=== PATIENT | female | born 1935 | race Caucasian/White ===

== ENCOUNTER 2016-11-07 11:33 | Observation (INO) | payer MEDICARE ==
[2016-11-07] MEDS ORDERED: Ibuprofen TAB* 600 MG PO ONE (12:22)
[2016-11-07] MEDS ORDERED: Acetaminophen TAB* 325 MG PO ONE (12:22)
--- NOTE | 2016-11-07 13:39 | RAD ---
Indication: Right hip pain, fracture or osteoarthritis. CT of the pelvis was obtained in the axial plane. Coronal and sagittal reconstructed images were obtained. Transverse processes are unremarkable. There is degenerative disc disease at L5-S1 with broad-based protrusion and vacuum disc phenomenon. Facet arthropathy is noted. The pelvic ring is intact. No evidence of fracture is noted. Sacroiliac joints are otherwise unremarkable. The femoral head and neck demonstrates no evidence of fracture. There may be some early degenerative changes of both hips. Osteophyte formation is noted. IMPRESSION: No fracture of the pelvis is noted. Early degenerative changes of both hips.
--- NOTE | 2016-11-07 13:47 | RAD ---
Indication: Back pain extending to the proximal thigh. CT of the lumbar spine was obtained in the axial plane. Sagittal and coronal reconstructed images were obtained. The vertebral bodies appear normal in height. There is grade 1 spondylolisthesis of L4 on L5. At T12-L1 vacuum disc phenomenon is noted. No focal protrusion is noted. At L1-L2 and L2-L3 no disc protrusion is noted. No central or foraminal stenosis is noted. At L3-L4 minimal broad-based protrusion flattens the sac. No foraminal stenosis is noted. At L4-L5 grade 1 spondylolisthesis with broad-based protrusion is noted. Facet arthropathy and degenerative changes of both facet joints are noted. Broad-based protrusion is noted extending to far lateral aspects narrowing both intervertebral foramen. At L5-S1 degenerative disc disease is noted. Mild facet arthropathy is noted. No central or foraminal stenosis is noted. Sacroiliac joints are otherwise unremarkable. IMPRESSION: There is grade 1 spondylolisthesis of L4 on 5 with vacuum disc phenomenon, broad-based protrusion with flattening of the thecal sac and moderate degree of facet arthropathy. There is likely bilateral foraminal stenosis due to spondylolisthesis and probably.
[2016-11-07] MEDS ORDERED: Ondansetron ODT TAB* 4 MG PO ONE (14:29)
[2016-11-07] MEDS ORDERED: Dexamethasone TAB* 4 MG PO ONE (14:30)
[2016-11-07] MEDS ORDERED: oxyCODONE/Acetamin 5/325 MG* TAB PO ONE (14:30)
[2016-11-07] MEDS ORDERED: Diazepam TAB(*) 5 MG PO ONE (15:50)
[2016-11-07 16:05] LABS: Hematocrit 36 % (35-47); Hemoglobin 11.9 g/dl (12.0-16.0); Mean Corpuscular HGB Conc 33 g/dl (31-36); Mean Corpuscular Hemoglobin 32 pg (27-31); Mean Corpuscular Volume 94 fL (80-97); Mean Platelet Volume 9 um3 (7.4-10.4); Red Blood Count 3.76 10^6/ul (4.0-5.4); Red Cell Distribution Width 14 % (10.5-15); White Blood Count 9.1 10^3/ul (3.5-10.8)
--- NOTE | 2016-11-07 16:13 | ED ---
Aixa Farley Anna, scribed for Marcin Valentin MD on 11/07/16 at 1215 . Back Pain - HPI Summary HPI Summary: The patient is an 81 y/o female BIBA to [facility] presenting with gradual onset of worsening right hip pain that began four days ago. When she steps on her leg, her leg gives out. She reports that she has not fallen as a result of this. She noticed the pain after she did a lot of walking. The pain is such that she is no longer able to walk because of the pain. The pain does not radiate down her legs. She takes Tylenol and ibuprofen for the pain but did not take any today. She had an adjustment by her chiropractor yesterday and was able to walk at that time. The pain is exacerbated by sitting up. She denies CP or abd pain. She reports normal BM and urination. Denies Hx DM or back pain. Hx significant for arthritis. The patient lives by herself and has to ambulate up and down stairs regularly when at home. - History of Current Complaint Chief Complaint: EDFlankPain Stated Complaint: BACK PAIN Time Seen by Provider: 11/07/16 12:06 Hx Obtained From: Patient, Family/Photoengraving Apprentice - Accompanied by neighbor Onset/Duration: Gradual Onset, Lasting Days, Still Present Onset/Duration: Started Days Ago, Atraumatic, Still Present Pain Intensity: 8 Pain Scale Used: 0-10 Numeric - Allergies/Home Medications Allergies/Adverse Reactions: Allergies Allergy/AdvReac Type Severity Reaction Status Date / Time Codeine Allergy Unknown Verified 04/02/13 12:47 Reaction Details Paroxetine [From Paxil] Allergy Unknown Verified 04/02/13 12:47 Reaction Details Simvastatin Allergy Vomiting Verified 11/07/16 12:20 Tramadol Allergy Unknown Verified 04/02/13 12:48 Reaction Details PMH/Surg Hx/FS Hx/Imm Hx Endocrine/Hematology History: Denies: Hx Diabetes Cardiovascular History: Reports: Hx Coronary Artery Disease, Hx Hypertension Respiratory History: Reports: Hx Chronic Obstructive Pulmonary Disease (COPD) Musculoskeletal History: Reports: Hx Arthritis, Other Musculoskeletal History - Restless Leg Syndrome Denies: Hx Back Problems Psychiatric History: Reports: Hx Anxiety - Surgical History Surgery Procedure, Year, and Place: CABG Infectious Disease History: No Infectious Disease History: Denies: Traveled Outside the [place] in Last 30 Days - Family History Known Family History: Positive: Cardiac Disease, Diabetes - Social History Occupation: Retired Lives: Alone Alcohol Use: None Substance Use Type: Reports: None Smoking Status (MU): Never Smoked Tobacco Review of Systems Negative: Chest Pain Negative: Abdominal Pain Genitourinary: Other - Denies changes in urination or BM Positive: Arthralgia, Myalgia All Other Systems Reviewed And Are Negative: Yes Physical Exam - Summary Physical Exam Summary: The patient is well-nourished in no acute distress. The skin is warm and dry and skin color reflects adequate perfusion. HEENT: The head is normocephalic and atraumatic. The pupils are equal and reactive. The conjunctivae are clear and without drainage. Nares are patent and without drainage. Mouth reveals moist mucous membranes and the throat is without erythema and exudate. The external ears are intact. The ear canals are patent and without drainage. The tympanic membranes are intact. Neck is supple with full range of motion and non-tender. There are no carotid bruits. There is no neck vein distension. Respiratory: Chest is non-tender. Lungs are clear to auscultation and breath sounds are symmetrical and equal. Cardiovascular: Heart is regular rate and rhythm. There is no murmur or rub auscultated. There is no peripheral edema and pulses are symmetrical and equal. Abdomen: The abdomen is obese, soft, and non-tender. There are normal bowel sounds heard in all four quadrants and there is no organomegaly palpated. Musculoskeletal: Leg lengths equal. MICHAEL. Marked tenderness over sacrum and right hip. Extremities are non-tender with full range of motion. Positive straight leg raise, hips lateral at 90 degrees and contralateral 90 degrees at the left. There is good capillary refill. There is no peripheral edema or calf tenderness elicited. Neurological: Patient is alert and oriented to person, place and time. The patient has symmetrical motor strength in all four extremities. Cranial nerves are grossly intact. Deep tendon reflexes are intact in patella and Achilles. Good light touch sensation. Psychiatric: The patient has an appropriate affect and does not exhibit any anxiety or depression. Triage Information Reviewed: Yes Vital Signs On Initial Exam: Initial Vitals Temp Pulse Resp BP Pulse Ox 97.6 F 63 16 145/58 96 11/07/16 11:45 11/07/16 11:45 11/07/16 11:45 11/07/16 11:45 11/07/16 11:45 Vital Signs Reviewed: Yes - Dinora Coma Scale Coma Scale Total: 15 Diagnostics - Vital Signs Vital Signs Temp Pulse Resp BP Pulse Ox 11/07/16 12:00 65 153/61 93 11/07/16 11:56 64 96 11/07/16 11:45 97.6 F 63 16 145/58 96 - Laboratory Lab Results: Lab Results 11/07/16 Range/Units 15:55 WBC 9.1 (3.5-10.8) 10^3/ul RBC 3.76 L (4.0-5.4) 10^6/ul Hgb 11.9 L (12.0-16.0) g/dl Hct 36 (35-47) % MCV 94 (80-97) fL MCH 32 H (27-31) pg MCHC 33 (31-36) g/dl RDW 14 (10.5-15) % Plt Count 223 (150-450) 10^3/ul MPV 9 (7.4-10.4) um3 Neut % (Auto) 42.9 (38-83) % Lymph % (Auto) 47.4 H (25-47) % [place] % (Auto) 7.5 (1-9) % Eos % (Auto) 1.6 (0-6) % Baso % (Auto) 0.6 (0-2) % Absolute Neuts (auto) 3.9 (1.5-7.7) 10^3/ul Absolute Lymphs (auto) 4.3 (1.0-4.8) 10^3/ul Absolute Monos (auto) 0.7 (0-0.8) 10^3/ul Absolute Eos (auto) 0.1 (0-0.6) 10^3/ul Absolute Basos (auto) 0.1 (0-0.2) 10^3/ul Absolute Nucleated RBC 0.01 10^3/ul Nucleated RBC % 0.1 ESR Pending Result Diagrams: 11/07/16 15:55 Lab Statement: Any lab studies that have been ordered have been reviewed, and results considered in the medical decision making process. - CT Pelvis CT CT Interpretation: No Acute Changes CT Interpretation Completed By: Radiologist - IMPRESSION: No fracture of the pelvis is noted. Early degenerative changes of both hips. L-Spine CT CT Interpretation: Positive (See Comments) CT Interpretation Completed By: Radiologist - IMPRESSION: There is grade 1 spondylolisthesis of L4 on 5 with vacuum disc phenomenon, broad-based protrusion with flattening of the thecal sac and moderate degree of facet arthropathy. There is likely bilateral foraminal stenosis due to spondylolisthesis and probably. Re-Evaluation - Re-Evaluation First Eval Re-Evaluation Time: 14:23 Change: Unchanged Comment: The patient reports that she is still in pain. She reports that narcotics make her nauseous. She says she tolerates steroids well. For pain, she takes ibuprofen and Tylenol, but this has not alleviated her current pain. She takes Xanax for her anxiety. She has restless leg syndrome as well. She says she is willing to try a new medication. Second Eval Re-Evaluation Time: 15:13 Change: Improved Comment: The patient reports that she does not have any pain lying down. The pain is when she tries to get up. She is starting to feel some relief from the pills and has not felt any nausea. Third Eval Re-Evaluation Time: 15:40 Change: Unchanged Comment: The patient feels as if the pain has gotten worse. She reports that she cannot walk without support, which she found when her nurse and daughter tried to help her go to the bathroom. She says she does not feel comfortable going home. Pt unable to get up without assistance. Will consult hospitalist for evaluation. Back Pain Course/Dx - Course Assessment/Plan: Patient is a lady with back pain since Tuesday. She saw her chiropractor for an evaluation of the pain. It is worse today and she cannot walk. The patient was given mobile doses of pain med. She was helped up to go to the bathroom and was unable to get up w/o assistance. She lives by herself and has steps in her house. Not able to safely d/c home. Will consult hospitalist for admission. Diagnosis is: 1. Back pain 2. Ambulatory dysfunction 3. Degenerative disc disease - Diagnoses Differential Diagnosis/HQI/PQRI: Positive: Arthritis, Herniated Disc, Strain, Sprain, Other - sciatica, degenerative disc disease Provider Diagnoses: Back pain, Ambulatory dysfunction, Degenerative disc disease - Provider Notifications Discussed Care of Patient With: Dr. Chao (hospitalist) at 1601. Accepts patient for admission. Discharge - Discharge Plan Condition: Stable Disposition: ADMITTED TO [facility] Patient Education Materials: Back Pain (ED), Hip Pain (ED) Referrals: Irvin Schafer MD [Primary Care Provider] - The documentation as recorded by the Aixa castellon Anna accurately reflects the service I personally performed and the decisions made by me, Marcin Valentin MD.
[2016-11-07 16:21] LABS: Albumin 3.9 g/dL (3.2-5.2); BUN/Creatinine Ratio 23.6 (8-20); C Reactive Protein 6.9 mg/L (< 5.00); EGFR African American 63.7 (>60); EGFR Non-African American 49.5 (>60); Globulin 3.3 g/dL (2-4); Potassium 4.1 mmol/L (3.5-5.0); Total Bilirubin 0.4 mg/dL (0.2-1.0); Total Protein 7.2 g/dL (6.4-8.9)
[2016-11-07] MEDS ORDERED: ALPRAZolam TAB* 0.5 MG PO PRN (16:44)
[2016-11-07] MEDS ORDERED: Ibuprofen TAB* 600 MG PO PRN (16:46)
[2016-11-07 16:52] LABS: Erythrocyte Sed Rate 33 mm/Hr (0-40)
[2016-11-07] MEDS ORDERED: Docusate CAP* 100 MG PO PRN (18:10)
--- NOTE | 2016-11-07 18:58 | HP ---
CC: Dr. Schafer HISTORY AND PHYSICAL: DATE OF ADMISSION: 11/07/16 PRIMARY CARE PHYSICIAN: Dr. Schafer. CHIEF COMPLAINT: Back pain. HISTORY OF PRESENT ILLNESS: Ms. Hawkins is an 81-year-old female with a past medical history of hype rtension, CAD, COPD, arthritis, hyperlipidemia, hypothyroidism, diabetes, who [facility]. The patient states she has had some difficulty walking for sometimes, p articularly with long distances, she develops low back pain. However, on Tuesday, she felt like s he pushed herself as she brought her friend here to the hospital, was pushing her on in a wheelchair . Over the following days, she had worsening pain in the right low back and part of the right later al hip that was nonradiating. She denied any numbness or tingling. She decided yesterday to go to chiropractor where she states she had a back and a pelvic adjustment. She felt like perhaps her sym ptoms were little bit better in the evening; however, this morning when she woke up, the pain was mu ch more severe. She could not sit up in bed and came to the hospital for further evaluation. She d enies any lower extremity numbness or tingling. No urinary symptoms. No fever or chills. Reports she has been having good p.o. intake. No diarrhea, constipation, nausea, vomiting, dysuria, hematur ia, hematochezia, or melena. In the emergency department, she received pain medications and steroid s; however, she still had a lot of difficulty getting around as she lives on her own. She felt that it was unsafe for her to return home. PAST MEDICAL HISTORY: CAD, hypertension, COPD, arthritis, hyperlipidemia, hypothyroidism, diabetes. PAST SURGICAL HISTORY: CABG, hysterectomy, appendectomy, cholecystectomy, tubal ligation. HOME MEDICATIONS: 1. Metformin 500 mg by mouth daily. 2. Synthroid 112 mcg by mouth daily. 3. Alprazolam 0.5 mg by mouth at bedtime as needed for anxiety. 4. Atorvastatin 20 mg by mouth daily. 5. Amlodipine 10 mg by mouth daily. 6. Aspirin 81 mg by mouth daily. 7. Lisinopril/hydrochlorothiazide 20/12.5 one tablet by mouth daily. 8. Multivitamin 1 tablet by mouth daily. 9. Tylenol 650 mg by mouth at bedtime. ALLERGIES: CODEINE, TRAMADOL, SIMVASTATIN, PAROXETINE. SOCIAL HISTORY: Denies any tobacco use, alcohol use, or illicit drug use. She lives at home on her own and is fairly independent. REVIEW OF SYSTEMS: A 12-point review of systems negative except for that as noted in the HPI. PHYSICAL EXAMINATION GENERAL: The patient is a pleasant, obese, elderly female lying in bed in no apparent dis tress. VITAL SIGNS: On admission, temperature 97.6, heart rate of 63, respiratory rate of 16, O2 saturatio n 96% on room air, blood pressure 145/58. HEENT: Moist mucous membranes. Anicteric sclerae. Pupils equal, round, reactive to light and acco mmodation. LUNGS: Clear to auscultation bilaterally. No wheezes, rales, or rhonchi. CARDIOVASCULAR: Regular rate and rhythm. S1, S2 present. No murmurs, gallops, or rubs. ABDOMEN: Soft, nontender, nondistended. Bowel sounds positive. EXTREMITIES: No cyanosis, clubbing, or edema. NEUROLOGIC: The patient is alert and oriented x3. No focal neurological deficits. MUSCULOSKELETAL: The patient is able to do bilateral straight leg raise test without any pain. Str ength is 5/5 in bilateral lower extremities. She has point tenderness over the right SI joint and s ome tenderness over the lateral pelvis. This pain is nonradiating. LABS AND DIAGNOSTICS: White blood cell count of 9.1, hematocrit of 36, platelets 223. ESR of 33. CRP of 6.9. Sodium of 134, potassium 4.1, chloride of 101, CO2 of 22, BUN of 25, creatinine of 1.0 6, glucose of 142. LFTs within normal limits. Lumbar spine CT shows grade 1 spondylolisthesis in L4-L5 with a broad-based protrusion with flatteni ng of the thecal sac and moderate facet arthropathy, likely bilateral foraminal stenosis due to spon dylolisthesis is probable. Pelvic CT shows no fracture of the pelvis, early degenerative changes in both hips. ASSESSMENT AND PLAN: Acute worsening of back pain after chiropractic adjustment in an 81-year-old f emale with a history of coronary artery disease, hypertension, chronic obstructive pulmonary disease , arthritis, hyperlipidemia, hypothyroidism, diabetes. 1. Back pain: I do not think this is related to the patient's herniated disk. Seems like on exam t his is possibly sacroiliitis. This could have been exacerbated by her chiropractic adjustment. The patient seemed to respond well to Percocet in the emergency department. We will continue this for now. She also received Decadron. We will continue prednisone 40 mg by mouth daily starting tomorro w. Have ibuprofen available as well. Place the PT evaluation. I do not feel the patient needs any additional imaging at this time. 2. Coronary artery disease: Continue aspirin, statin. 3. Hypertension: Continue home amlodipine and lisinopril/hydrochlorothiazide. 4. Hypothyroidism: Continue home Synthroid. 5. Diabetes: Continue home metformin. 6. DVT prophylaxis: Heparin subcu. 7. Code status: The patient is a full code. TIME SPENT: Total time spent on this admission 45 minutes with over half the time spent face-to-fac e with the patient in counseling and coordinating care. [id number]/[facility] #: [id number]
[2016-11-07 20:25] LABS: Urine Bilirubin Negative (Negative); Urine Glucose Negative (Negative); Urine Nitrite Negative (Negative)
[2016-11-07] MEDS: Heparin VIAL(*) 5000 UNITS/ML VIAL (FIVE THOUSAND) SUBCUT SCH (21:46)
[2016-11-07] MEDS: oxyCODONE/Acetamin 5/325 MG* TAB PO PRN (21:46)
[2016-11-08] MEDS: oxyCODONE/Acetamin 5/325 MG* TAB PO PRN ×3 (03:39→15:11)
[2016-11-08] MEDS: Heparin VIAL(*) 5000 UNITS/ML VIAL (FIVE THOUSAND) SUBCUT SCH ×2 (05:41→13:58)
[2016-11-08] MEDS ORDERED: Hydrochlorothiazide TAB* 25 MG PO SCH (09:00)
[2016-11-08] MEDS ORDERED: amLODIPine TAB* 5 MG PO SCH (09:00)
[2016-11-08] MEDS ORDERED: METFORMIN 500 MG PO SCH (09:00)
[2016-11-08] MEDS ORDERED: Lisinopril TAB* 10 MG PO SCH (09:00)
[2016-11-08] MEDS ORDERED: Atorvastatin* 20 MG TAB PO SCH (09:00)
[2016-11-08] MEDS ORDERED: Levothyroxine TAB* 112 MCG TAB PO SCH (09:00)
[2016-11-08] MEDS ORDERED: predniSONE TAB* 20 MG PO SCH (09:00)
[2016-11-08] MEDS ORDERED: Aspirin EC Low Dose* 81 MG TAB.EC PO SCH (09:00)
--- NOTE | 2016-11-08 12:30 | DCNOTE ---
Patient seen this morning. Back pain improved, Percocet works well. Patient ambulated around the unit. Still with some pain however but should be able to manage at home. On exam, RRR, s1 and s2 present, no m/g/r, abd soft, NTND, BS+, TTP over R SI joint Discharge home with pain medications and home PT.
[2016-11-08 16:00] VITALS: BP 123/44
--- NOTE | 2016-11-10 04:19 | DS ---
DISCHARGE SUMMARY: DATE OF ADMISSION: 11/07/16 DATE OF DISCHARGE: 11/08/16 PRIMARY CARE PHYSICIAN: Dr. Schafer. PRINCIPAL DISCHARGE DIAGNOSIS: Back pain. SECONDARY DIAGNOSES: 1. Coronary artery disease. 2. Hypertension. 3. Chronic obstructive pulmonary disease. 4. Arthritis. 5. Hyperlipidemia. 6. Hypothyroidism. 7. Diabetes. DISCHARGE MEDICATION REGIMEN: 1. Colace 100 mg by mouth daily as needed for constipation. 2. Ibuprofen 600 mg by mouth every 6 hours as needed for pain. 3. Percocet 5/325 one tablet by mouth every 4 hours as needed for pain. 4. Prednisone 40 mg by mouth daily. 5. Synthroid 112 mcg by mouth daily. 6. Xanax 0.5 mg by mouth at bedtime as needed for anxiety. 7. Atorvastatin 20 mg by mouth daily. 8. Amlodipine 10 mg by mouth daily. 9. Aspirin 81 mg by mouth daily. 10. Lisinopril/hydrochlorothiazide 20/12.5 one tablet by mouth daily. 11. Multivitamin 1 tablet by mouth daily. 12. Metformin 1000 mg by mouth daily. STUDIES DONE DURING HOSPITALIZATION: CT spine, lumbar without contrast. There is grade 1 spondylolisthesis at L4-L5 with vacuum disk phenomenon, broad-based protrusion with flattening of the thecal sac and moderate degree of facet arthropathy. There is likely bilateral foraminal stenosis due to spondylolisthesis. CT of the pelvis without contrast. Impression: No fracture of the pelvis is noted. Early degenerative changes of both hips. HISTORY OF PRESENT ILLNESS AND HOSPITAL SUMMARY: Please see my full history and physical for full details. Briefly, Ms. Hawkins is an 81-year-old female with a past medical history as above, who presented to the hospital with acute worsening of back pain after she had walked long distances in hospital and pushed her friend in a wheelchair. She went to a chiropractor and had an adjustment, which initially she noted some improvement. However, the following morning, the pain was significantly worse. She came to the ED. Imaging was done as above. However, physical exam was more consistent with sacroiliitis rather than spinal stenosis. The patient was given some steroids and pain medications and had improvement in her symptoms. She was ambulatory the following day and able to be discharged home with home physical therapy. TIME SPENT: Total time spent on this discharge 35 minutes. This is a summary of the hospitalization; please see the full medical record for further details. CC: Dr. Schafer* [id number]/[facility] #: [id number] MTDD
== END 2016-11-08 16:52 | disposition home or self-care (01) ==
LOC: ED 11:33 → SSU 16:12
PROVIDERS: ADMIT Hospitalist; ATTEND Hospitalist
DX: M43.16 Spondylolisthesis, lumbar region (principal); M51.16 Intervertebral disc disorders with radiculopathy, lumbar region; I25.10 Atherosclerotic heart disease of native coronary artery without angina pectoris; I10 Essential (primary) hypertension; J44.9 Chronic obstructive pulmonary disease, unspecified; E78.5 Hyperlipidemia, unspecified; E03.9 Hypothyroidism, unspecified; E11.9 Type 2 diabetes mellitus without complications; M19.90 Unspecified osteoarthritis, unspecified site; G25.81 Restless legs syndrome; Z79.899 Other long term (current) drug therapy; Z88.5 Allergy status to narcotic agent; Z88.8 Allergy status to other drugs, medicaments and biological substances
CPT/HCPCS: 36415; 72131; 72192; 80053; 81003; 85025; 85652; 86140; 96372; 99284; A9270-GY; G0378; G8978-GP-CI; G8979-GP-CI; G8980-GP-CI; J1644; J7512

== ENCOUNTER 2017-04-16 12:20 | Emergency (ER) | payer MEDICARE ==
[2017-04-16] MEDS ORDERED: oxyCODONE/Acetamin 5/325 MG* TAB PO ONE ×2 (18:23→18:24)
[2017-04-16] MEDS ORDERED: predniSONE TAB* 20 MG PO ONE ×2 (18:24→18:28)
[2017-04-16 19:21] VITALS: BP 154/60
--- NOTE | 2017-04-17 13:29 | ED ---
Kely Farley Thomas, scribed for Nahid Smith MD on 04/16/17 at 1801 . Lower Extremity - HPI Summary HPI Summary: The pt is a 81 y/o F presenting to the ED c/o R hip pain that began 3 weeks ago. This pain is related to a chronic complaint. Five months ago, she was diagnosed with sacroiliitis after an MRI and radiography were performed. She as seen three days ago and she was given a cortisone shot to no relief. The pain is constant and is rated 8/10. The pain is aggravated by sitting up from supine and alleviated by nothing. The patient has treated the pain with 2 Aleve and 2 Tylenol this AM, to no relief of pain. PMHx: NH, hypothyroidism, sacroiliitis, restless leg syndrome, anxiety, HTN, and COPD. PSHx: CABG. SHx: no smoking, no alcohol use, no illicit drugs. FHx: DM, CAD. - History of Current Complaint Chief Complaint: EDExtremityLower Stated Complaint: HIP PAIN Time Seen by Provider: 04/16/17 17:53 Hx Obtained From: Patient Onset of Pain: Days - 3 weeks Onset/Duration: Still Present Severity Currently: Severe Pain Intensity: 8 Pain Scale Used: 0-10 Numeric Timing: Constant Associated Signs And Symptoms: Positive: Negative Aggravating Factor(s): Other - standing up from supine Alleviating Factor(s): Nothing, Other - NOT relieved by Aleve, Tylenol taken today - Allergies/Home Medications Allergies/Adverse Reactions: Allergies Allergy/AdvReac Type Severity Reaction Status Date / Time Paroxetine [From Paxil] Allergy Unknown Verified 04/02/13 12:47 Reaction Details Simvastatin Allergy Vomiting Verified 11/07/16 12:20 Codeine AdvReac Unknown Verified 11/07/16 17:42 Reaction Details Tramadol AdvReac Unknown Verified 11/07/16 17:42 Reaction Details PMH/Surg Hx/FS Hx/Imm Hx Previously Healthy: No Endocrine/Hematology History: Reports: Hx Diabetes - borderline Cardiovascular History: Reports: Hx Coronary Artery Disease, Hx Hypertension Respiratory History: Reports: Hx Chronic Obstructive Pulmonary Disease (COPD), Hx Sleep Apnea - uses CPAP GI History: Reports: Hx Irritable Bowel Musculoskeletal History: Reports: Hx Arthritis, Other Musculoskeletal History - Restless Leg Syndrome Denies: Hx Back Problems Sensory History: Reports: Hx Contacts or Glasses - reading Opthamlomology History: Reports: Hx Contacts or Glasses - reading Psychiatric History: Reports: Hx Anxiety - Surgical History Surgery Procedure, Year, and Place: CABG Infectious Disease History: No Infectious Disease History: Denies: Traveled Outside the [place] in Last 30 Days - Family History Known Family History: Positive: Cardiac Disease, Diabetes - Social History Alcohol Use: None Substance Use Type: Reports: None Smoking Status (MU): Never Smoked Tobacco Review of Systems Negative: Fever Positive: Other - POS: R hip pain (from chronic pain, worsened 3 weeks ago, 04/07 ) All Other Systems Reviewed And Are Negative: Yes Physical Exam Triage Information Reviewed: Yes Vital Signs On Initial Exam: Initial Vitals Temp Pulse Resp BP Pulse Ox 97.3 F 62 20 148/63 97 04/16/17 12:37 04/16/17 12:37 04/16/17 12:37 04/16/17 12:37 04/16/17 12:37 Vital Signs Reviewed: Yes Appearance: Positive: Well-Appearing, Well-Nourished, Pain Distress Skin: Positive: Warm, Skin Color Reflects Adequate Perfusion, Dry Head/Face: Positive: Normal Head/Face Inspection Eyes: Positive: Normal ENT: Positive: Normal ENT inspection Neck: Positive: Supple, Nontender Respiratory/Lung Sounds: Positive: Clear to Auscultation, Breath Sounds Present Cardiovascular: Positive: RRR Abdomen Description: Positive: Nontender, Soft Bowel Sounds: Positive: Present Musculoskeletal: Positive: Other - She is tender to her sciatic area Neurological: Positive: Normal Psychiatric: Positive: Normal, Affect/Mood Appropriate Diagnostics - Vital Signs Vital Signs Temp Pulse Resp BP Pulse Ox 04/16/17 17:00 97.3 F 63 17 145/60 96 04/16/17 14:19 96.8 F 59 14 124/50 95 04/16/17 12:37 97.3 F 62 20 148/63 97 - Laboratory Lab Statement: Any lab studies that have been ordered have been reviewed, and results considered in the medical decision making process. Lower Extremity Course/Dx - Course Course Of Treatment: Ms. Hawkins presented with sciatica that has flaired up. She says steroids have helped her in the past and is requesting them again. Her exam is consistent and I am inclined to agree with her. - Diagnoses Provider Diagnoses: Sciatica Discharge - Discharge Plan Condition: Stable Disposition: HOME Patient Education Materials: Sciatica (ED) Referrals: Irvin Schafer MD [Primary Care Provider] - 3 Days The documentation as recorded by the Kely castellon Thomas accurately reflects the service I personally performed and the decisions made by me, Nahid Smith MD.
== END 2017-04-16 19:26 | disposition home or self-care (01) ==
LOC: ED 12:20
DX: M54.31 Sciatica, right side (principal); R73.03 Prediabetes; I25.10 Atherosclerotic heart disease of native coronary artery without angina pectoris; I10 Essential (primary) hypertension; J44.9 Chronic obstructive pulmonary disease, unspecified; G47.30 Sleep apnea, unspecified; K58.9 Irritable bowel syndrome, unspecified; G25.81 Restless legs syndrome; F41.9 Anxiety disorder, unspecified; Z95.1 Presence of aortocoronary bypass graft; Z88.5 Allergy status to narcotic agent; Z88.8 Allergy status to other drugs, medicaments and biological substances
CPT/HCPCS: 99282; A9270-GY; J7512

== ENCOUNTER 2017-04-22 14:29 | Emergency (ER) | payer MEDICARE ==
--- NOTE | 2017-04-22 16:42 | ED ---
Lower Extremity - HPI Summary HPI Summary: 81 yr old female with the complaint of left hip pelvis pain after a fall getting off the bus three days ago. She lives at home, walks with a walker, and feels that her left hip is giving out when attempting to walk. She rates her pain as moderate, worse with weight bearing. Denies focal weakness or numbness or tingling. - History of Current Complaint Chief Complaint: UCLowerExtremity Stated Complaint: HIP INJURY Time Seen by Provider: 04/22/17 16:27 - Allergies/Home Medications Allergies/Adverse Reactions: Allergies Allergy/AdvReac Type Severity Reaction Status Date / Time Paroxetine [From Paxil] Allergy Unknown Verified 04/02/13 12:47 Reaction Details Simvastatin Allergy Vomiting Verified 11/07/16 12:20 Codeine AdvReac Unknown Verified 11/07/16 17:42 Reaction Details Tramadol AdvReac Unknown Verified 11/07/16 17:42 Reaction Details PMH/Surg Hx/FS Hx/Imm Hx Endocrine/Hematology History: Reports: Hx Diabetes - borderline Cardiovascular History: Reports: Hx Coronary Artery Disease, Hx Hypertension Respiratory History: Reports: Hx Chronic Obstructive Pulmonary Disease (COPD), Hx Sleep Apnea - uses CPAP GI History: Reports: Hx Irritable Bowel Musculoskeletal History: Reports: Hx Arthritis, Other Musculoskeletal History - Restless Leg Syndrome Denies: Hx Back Problems Sensory History: Reports: Hx Contacts or Glasses - reading Opthamlomology History: Reports: Hx Contacts or Glasses - reading Psychiatric History: Reports: Hx Anxiety - Surgical History Surgery Procedure, Year, and Place: CABG Infectious Disease History: No Infectious Disease History: Denies: Traveled Outside the [place] in Last 30 Days - Family History Known Family History: Positive: Cardiac Disease, Diabetes - Social History Alcohol Use: None Substance Use Type: Reports: None Smoking Status (MU): Never Smoked Tobacco Review of Systems Positive: Other - hip pain All Other Systems Reviewed And Are Negative: Yes Physical Exam Triage Information Reviewed: Yes Vital Signs On Initial Exam: Initial Vitals Temp Pulse Resp BP Pulse Ox 96.8 F 60 12 141/54 100 04/22/17 14:57 04/22/17 14:57 04/22/17 14:57 04/22/17 14:57 04/22/17 14:57 Vital Signs Reviewed: Yes Appearance: Positive: Well-Appearing, No Pain Distress Skin: Positive: Warm Head/Face: Positive: Normal Head/Face Inspection Eyes: Positive: EOMI, BALJIT Neck: Positive: Nontender Respiratory/Lung Sounds: Positive: Clear to Auscultation, Breath Sounds Present Cardiovascular: Positive: RRR. Negative: Murmur Abdomen Description: Positive: Nontender Musculoskeletal: Positive: Other - tender over the left hip and with range of motion. No shortening or rotation of left leg. Neurological: Positive: Sensory/Motor Intact, Alert, Oriented to Person Place, Time, CN Intact II-III Psychiatric: Positive: Normal - [place] Coma Scale Best Eye Response: 4 - Spontaneous Best Motor Response: 6 - Obeys Commands Best Verbal Response: 5 - Oriented Diagnostics - Vital Signs Vital Signs Temp Pulse Resp BP Pulse Ox 04/22/17 14:57 96.8 F 60 12 141/54 100 - Laboratory Lab Statement: Any lab studies that have been ordered have been reviewed, and results considered in the medical decision making process. - Radiology hip, pelvis Xray Interpretation: No Acute Changes Radiology Interpretation Completed By: Radiologist Lower Extremity Course/Dx - Course Course Of Treatment: 81 yr old with contusion to the hip. DC home. Xrays neg. - Diagnoses Provider Diagnoses: Contusion of hip, left Discharge - Discharge Plan Condition: Good Disposition: HOME Patient Education Materials: Hip Contusion (ED) Referrals: Irvin Schafer MD [Primary Care Provider] -
[2017-04-22 17:11] VITALS: BP 145/60
--- NOTE | 2017-04-22 17:15 | RAD ---
HISTORY: Fall, trauma, left hip pain COMPARISONS: March 10, 2015 VIEWS: 3, Frontal view of the pelvis with frontal and frog-leg views of the left hip FINDINGS: BONE DENSITY: Normal. BONES: There is no displaced fracture. JOINTS: There is no arthropathy. ALIGNMENT: There is no dislocation. SOFT TISSUES: Unremarkable. OTHER FINDINGS: Degenerative changes are noted of the spine IMPRESSION: NO RADIOGRAPHIC EVIDENCE FOR HIP FRACTURE. X-RAYS MAY BE NEGATIVE WITH NONDISPLACED HIP FRACTURE, IF THERE IS PERSISTENT CLINICAL CONCERN, RECOMMEND CONSIDERATION OF MRI. IN THE SETTING OF CONTRAINDICATION TO MRI OR LIMITATION IN EMERGENT ACCESS TO MRI, CT WOULD BE SUGGESTED.
--- NOTE | 2017-04-22 18:32 | RAD ---
HISTORY: Fall, trauma COMPARISONS: None VIEWS: 4, Frontal and lateral views of the left femur FINDINGS: BONE DENSITY: Normal. BONES: There is no displaced fracture. JOINTS: There is osteoarthritis of the left knee. ALIGNMENT: There is no dislocation. SOFT TISSUES: There is peripheral arterial calcification. OTHER FINDINGS: None. IMPRESSION: 1. OSTEOARTHRITIS. 2. PERIPHERAL ARTERIAL DISEASE. 3. NO ACUTE OSSEOUS INJURY. IF SYMPTOMS PERSIST, RECOMMEND REPEAT IMAGING.
== END 2017-04-22 17:56 | disposition home or self-care (01) ==
LOC: UCEAST 14:29
DX: S70.02XA Contusion of left hip, initial encounter (principal); R73.03 Prediabetes; I10 Essential (primary) hypertension; I25.10 Atherosclerotic heart disease of native coronary artery without angina pectoris; J44.9 Chronic obstructive pulmonary disease, unspecified; G47.33 Obstructive sleep apnea (adult) (pediatric); Z99.81 Dependence on supplemental oxygen; M19.90 Unspecified osteoarthritis, unspecified site; G25.81 Restless legs syndrome; F41.9 Anxiety disorder, unspecified; Z95.1 Presence of aortocoronary bypass graft; Z88.5 Allergy status to narcotic agent; W19.XXXA Unspecified fall, initial encounter
CPT/HCPCS: 99212; G0463

== ENCOUNTER 2017-05-01 20:56 | Inpatient (IN) | payer MEDICARE ==
[2017-05-01] MEDS ORDERED: Ketorolac INJ* 60 MG/2 ML VIAL IM ONE (21:10)
--- NOTE | 2017-05-01 21:30 | ED ---
Erin Farley Rebecca, scribed for Rafa Saavedra MD on 05/01/17 at 2112 . Lower Extremity - HPI Summary HPI Summary: Pt is an 81 y/o F BIBA who presents to ED c/o L hip pain. Pain worsened this morning upon waking her up and is currently severe, ranked 8/10 and characterized as burning. Has been treating the pain with Tylenol and Aleve which previously helped but are no longer changing sx. Sx aggravated by ambulation and movement, alleviated by nothing. Dx of bursitis in the R hip in October. Received a Cortisone shot 4 days ago in the R hip. - History of Current Complaint Chief Complaint: EDHipPelvisInjury Stated Complaint: L HIP PAIN Hx Obtained From: Patient Onset of Pain: Hours - This morning, Prior to Arrival Onset/Duration: Still Present Severity Currently: Severe Pain Intensity: 8 Pain Scale Used: 0-10 Numeric Location: Is Discrete @ - L hip Character Of Pain: Burning Associated Signs And Symptoms: Positive: Negative Aggravating Factor(s): Ambulation, Movement Alleviating Factor(s): Nothing - Allergies/Home Medications Allergies/Adverse Reactions: Allergies Allergy/AdvReac Type Severity Reaction Status Date / Time Paroxetine [From Paxil] Allergy Unknown Verified 04/02/13 12:47 Reaction Details Simvastatin Allergy Vomiting Verified 11/07/16 12:20 Codeine AdvReac Vomiting Verified 05/02/17 00:35 Oxycodone [From Percocet] AdvReac Vomiting Verified 05/02/17 00:35 Tramadol AdvReac Vomiting Verified 05/02/17 00:35 Home Medications: Home Medications Acetaminophen TAB* [Tylenol TAB*] 650 mg PO Q4H PRN 05/02/17 [History Confirmed 05/02/17] PMH/Surg Hx/FS Hx/Imm Hx Endocrine/Hematology History: Reports: Hx Diabetes - borderline Cardiovascular History: Reports: Hx Coronary Artery Disease, Hx Hypertension Respiratory History: Reports: Hx Chronic Obstructive Pulmonary Disease (COPD), Hx Sleep Apnea - uses CPAP GI History: Reports: Hx Irritable Bowel Musculoskeletal History: Reports: Hx Arthritis, Hx Bursitis - R hip, Other Musculoskeletal History - Restless Leg Syndrome Denies: Hx Back Problems Sensory History: Reports: Hx Contacts or Glasses - reading Opthamlomology History: Reports: Hx Contacts or Glasses - reading Psychiatric History: Reports: Hx Anxiety - Surgical History Surgery Procedure, Year, and Place: CABG Infectious Disease History: No Infectious Disease History: Denies: Traveled Outside the [place] in Last 30 Days - Family History Known Family History: Positive: Cardiac Disease, Diabetes - Social History Alcohol Use: None Substance Use Type: Reports: None Smoking Status (MU): Never Smoked Tobacco Review of Systems Negative: Fever Positive: Arthralgia - L hip pain All Other Systems Reviewed And Are Negative: Yes Physical Exam Triage Information Reviewed: Yes Vital Signs On Initial Exam: Initial Vitals Temp Pulse Resp BP Pulse Ox 98.3 F 67 20 183/77 98 05/01/17 21:00 05/01/17 21:00 05/01/17 21:00 05/01/17 21:00 05/01/17 21:00 Vital Signs Reviewed: Yes Appearance: Positive: Well-Appearing, No Pain Distress Skin: Positive: Warm Head/Face: Positive: Normal Head/Face Inspection Eyes: Positive: Normal ENT: Positive: Hearing grossly normal Neck: Positive: Supple Respiratory/Lung Sounds: Positive: Clear to Auscultation, Breath Sounds Present Cardiovascular: Positive: RRR Abdomen Description: Positive: Nontender, Soft Bowel Sounds: Positive: Present Musculoskeletal: Positive: Other - pain lt hip with movement, no deformity Neurological: Positive: Alert, Oriented to Person Place, Time Psychiatric: Positive: Affect/Mood Appropriate - [place] Coma Scale Coma Scale Total: 15 Diagnostics - Vital Signs Vital Signs Temp Pulse Resp BP Pulse Ox 05/01/17 21:00 98.3 F 67 20 183/77 98 - Laboratory Result Diagrams: 05/02/17 00:12 05/02/17 05:48 Lab Statement: Any lab studies that have been ordered have been reviewed, and results considered in the medical decision making process. - Radiology Hip/Pelvis XR Xray Interpretation: No Acute Changes - MILD BILATERAL OSTEOARTHRITIC CHANGE IN THE HIPS. ED physician reviewed this radiology report and agrees. Radiology Interpretation Completed By: Radiologist Re-Evaluation - Re-Evaluation First Eval Re-Evaluation Time: 21:51 Change: Unchanged Comment: Discussed XR results with the pt. Lower Extremity Course/Dx - Course Assessment/Plan: Pt is an 81 y/o F BIBA who presents to ED c/o L hip pain. Pain worsened this morning upon waking her up and is currently severe, ranked 8/10 and characterized as burning. Has been treating the pain with Tylenol and Aleve which previously helped but are no longer changing sx. Sx aggravated by ambulation and movement, alleviated by nothing. Dx of bursitis in the R hip in October. Received a Cortisone shot 4 days ago in the R hip. Hip/pelvis XR reveals no acute changes. In the ED course, pt was administered Toradol, Morphine and Zofran. Discussed care of pt with Dr. Chris Hough, hospitalist, who accepts pt for admisison. Pt will be admitted with Dx of hip pain. She understands and agrees. Elevated BP noted and advised to f/u with PCP. - Diagnoses Provider Diagnoses: Hip pain - Physician Notifications Discussed Care Of Patient With: Chris Hough Time Discussed With Above Provider: 02:00 Instructed by Provider To: Other - Accepts pt for admission Discharge - Discharge Plan Condition: Fair Disposition: ADMITTED TO [facility] The documentation as recorded by the Erni castellon Rebecca accurately reflects the service I personally performed and the decisions made by me, Rafa Saavedra MD.
--- NOTE | 2017-05-01 21:52 | RAD ---
INDICATION: Left hip pain. COMPARISON: Comparison is made with a prior study from April 22, 2017. TECHNIQUE: An AP view of the pelvis and frontal and lateral views of the left hip were obtained. FINDINGS: The bones are in normal alignment. No fracture is seen. There is mild bilateral osteoarthritic change in the hips. IMPRESSION: MILD BILATERAL OSTEOARTHRITIC CHANGE IN THE HIPS.
[2017-05-01] MEDS ORDERED: Morphine INJ* 4 MG/ML 1 ML SYRINGE IM ONE (22:27)
[2017-05-01] MEDS ORDERED: Ondansetron ODT TAB* 4 MG SL PRN (22:28)
[2017-05-01] MEDS ORDERED: Ondansetron ODT TAB* 4 MG ONE (22:31)
[2017-05-02 00:27] LABS: Hematocrit 37 % (35-47); Hemoglobin 12.8 g/dl (12.0-16.0); Mean Corpuscular HGB Conc 34 g/dl (31-36); Mean Corpuscular Hemoglobin 32 pg (27-31); Mean Corpuscular Volume 93 fL (80-97); Mean Platelet Volume 8 um3 (7.4-10.4); Red Blood Count 4.01 10^6/ul (4.0-5.4); Red Cell Distribution Width 14 % (10.5-15); White Blood Count 9.4 10^3/ul (3.5-10.8)
[2017-05-02 00:39] LABS: Albumin 3.7 g/dL (3.2-5.2); BUN/Creatinine Ratio 26.4 (8-20); Calcium 8.9 mg/dL (8.6-10.3); EGFR African American 75.9 (>60); Globulin 3.2 g/dL (2-4); Potassium 4.5 mmol/L (3.5-5.0); Total Bilirubin 0.5 mg/dL (0.2-1.0); Total Protein 6.9 g/dL (6.4-8.9)
[2017-05-02 00:54] LABS: Urine Bacteria Absent (Absent); Urine Bilirubin Negative (Negative); Urine Glucose Negative (Negative); Urine Nitrite Negative (Negative)
[2017-05-02] MEDS ORDERED: Ondansetron INJ* 2 MG/ML VIAL IV PRN (02:32)
[2017-05-02] MEDS ORDERED: methylPREDNISolone 125 MG* 2 ML VIAL IV ONE (02:37)
[2017-05-02] MEDS ORDERED: NS 0.9% 1000 ML* 1,000 ML IV SCH ×2 (02:45→13:30)
[2017-05-02] MEDS: Cyclobenzaprine TAB* 10 MG PO PRN ×2 (02:50→15:43)
[2017-05-02] MEDS: Ketorolac INJ* 30 MG/ML 1 ML VIAL IV PUSH PRN ×2 (03:46→10:31)
[2017-05-02 06:24] LABS: Calcium 8.8 mg/dL (8.6-10.3); EGFR African American 71.4 (>60); EGFR Non-African American 55.5 (>60); Potassium 4.5 mmol/L (3.5-5.0)
[2017-05-02] MEDS: Levothyroxine TAB* 112 MCG TAB PO SCH (06:39)
[2017-05-02] MEDS: Heparin VIAL(*) 5000 UNITS/ML VIAL (FIVE THOUSAND) SUBCUT SCH ×3 (06:40→20:51)
[2017-05-02] MEDS ORDERED: Metformin ER (NF) 500 MG TAB PO SCH (09:00)
[2017-05-02] MEDS ORDERED: Hydrochlorothiazide TAB* 25 MG PO SCH (09:00)
[2017-05-02] MEDS: amLODIPine TAB* 5 MG PO SCH (09:12)
[2017-05-02] MEDS: Aspirin EC Low Dose* 81 MG TAB.EC PO SCH (09:12)
[2017-05-02] MEDS: Lisinopril TAB* 10 MG PO SCH (09:12)
[2017-05-02] MEDS: Acetaminophen TAB* 325 MG PO PRN ×2 (10:31→18:15)
[2017-05-02] MEDS: metFORMIN* 500 MG TAB PO SCH (15:43)
--- NOTE | 2017-05-02 16:00 | PN ---
Subjective Date of Service: 05/02/17 Interval History: Ms. Hawkins feels a little better this morning. She was up in the chair and was able to walk the few steps it took to get there, but then she developed sharp pain in her left hip again. At rest in bed, she has no pain. Denies numbness, tingling, weakness. Denies recent illness, but does note two recent falls. Family History: Unchanged from Admission Social History: Unchanged from Admission Past Medical History: Unchanged from Admission Objective Active Medications: Acetaminophen (Tylenol Tab*) 650 mg PO Q4H PRN PRN Reason: FEVER/PAIN Last Admin: 05/02/17 10:31 Dose: 650 mg Alprazolam (Xanax Tab*) 0.5 mg PO BEDTIME PRN PRN Reason: ANXIETY Amlodipine Besylate (Norvasc Tab*) 10 mg PO DAILY [facility] Last Admin: 05/02/17 09:12 Dose: 10 mg Aspirin (Aspirin Ec Low Dose*) 81 mg PO DAILY [facility] Last Admin: 05/02/17 09:12 Dose: 81 mg Cyclobenzaprine HCl (Flexeril Tab*) 10 mg PO TID PRN PRN Reason: PAIN Last Admin: 05/02/17 15:43 Dose: 10 mg Heparin Sodium (Porcine) (Heparin Vial(*)) 5,000 units SUBCUT Q8HR [facility] Last Admin: 05/02/17 14:08 Dose: 5,000 units Hydrochlorothiazide (Hydrodiuril Tab*) 12.5 mg PO DAILY [facility] Last Admin: 05/02/17 09:11 Dose: 12.5 mg Sodium Chloride (Ns 0.9% 1000 Ml*) 1,000 mls @ 75 mls/hr IV PER RATE [facility] Last Admin: 05/02/17 14:15 Dose: 75 mls/hr Ketorolac Tromethamine (Toradol Inj*) 30 mg IV PUSH Q6H PRN PRN Reason: PAIN Last Admin: 05/02/17 10:31 Dose: 30 mg Levothyroxine Sodium (Synthroid Tab*) 112 mcg PO DAILY@0600 [facility] Last Admin: 05/02/17 06:39 Dose: 112 mcg Lisinopril (Prinivil Tab*) 20 mg PO DAILY [facility] Last Admin: 05/02/17 09:12 Dose: 20 mg Metformin HCl (Glucophage*) 500 mg PO DAILY [facility] Last Admin: 05/02/17 15:43 Dose: 500 mg Ondansetron HCl (Zofran Odt Tab*) 4 mg SL Q6H PRN PRN Reason: NAUSEA/VOMITING Last Admin: 05/01/17 22:33 Dose: 4 mg Ondansetron HCl (Zofran Inj*) 4 mg IV Q4H PRN PRN Reason: NAUSEA/VOMITING Vital Signs 05/02/17 05/02/17 05/02/17 03:41 03:48 06:31 Temperature 98.2 F 98.2 F 98.1 F Pulse Rate 59 59 62 Respiratory 18 16 Rate Blood Pressure 147/47 147/47 132/52 (mmHg) O2 Sat by Pulse 96 96 Oximetry 05/02/17 05/02/17 05/02/17 08:00 08:19 08:31 Temperature 97.8 F Pulse Rate 63 68 Respiratory 16 22 Rate Blood Pressure 127/47 (mmHg) O2 Sat by Pulse 88 95 Oximetry 05/02/17 05/02/17 05/02/17 11:32 11:43 15:43 Temperature 98.5 F Pulse Rate 62 Respiratory 21 10 Rate Blood Pressure 86/54 120/60 (mmHg) O2 Sat by Pulse 98 Oximetry Oxygen Devices in Use Now: None Appearance: alert, well appearing, no distress Eyes: No Scleral Icterus, PERRLA Ears/Nose/Mouth/Throat: NL Teeth, Lips, Gums, Clear Oropharnyx Neck: NL Appearance and Movements; NL JVP, Trachea Midline Respiratory: Symmetrical Chest Expansion and Respiratory Effort, Clear to Auscultation Cardiovascular: NL Sounds; No Murmurs; No JVD, RRR, - - old cabg scar Abdominal: NL Sounds; No Tenderness; No Distention, No Hepatosplenomegaly Lymphatic: No Cervical Adenopathy, No Axillary Adenopathy Extremities: No Edema, - - tender to palpation over left greater trochanter, full range of motion without pain, strength 5+ throughout, sensation in tact, skin in tact no bruising Skin: No Rash or Ulcers Neurological: Alert and Oriented x 3, NL Sensation Result Diagrams: 05/02/17 00:12 05/02/17 05:48 Assess/Plan/Problems-Billing Assessment: 1. Trochanteric Bursitis s/p injection 4 days ago; repeat cortisone injection not likely to be helpful. Continue NSAIDs and consult PT for stretches and other supportive care. No suggestion of hip joint pathology on imaging or on my examination. 2. Hyponatremia. Appears euvolemic on my exam. She does take hctz, which may be contributing. Will hold for now, continue normal saline, and check urine sodium and TSH. 3. CAD s/p CABG Continue asa/statin 4. MO on cpap tolerates cpap well, continue at home settings.
[2017-05-03] MEDS: Ketorolac INJ* 30 MG/ML 1 ML VIAL IV PUSH PRN ×4 (03:29→22:38)
--- NOTE | 2017-05-03 03:52 | HP ---
ADMISSION HISTORY AND PHYSICAL: DATE OF ADMISSION: 05/02/17 PRIMARY CARE PROVIDER: Irvin Schafer MD HEALTHCARE PROXY: Her daughter. CODE STATUS: DNR. Discussed with the patient and her daughter. SOURCE OF INFORMATION: History obtained from interview with the patient and her daughter, review of her past medical records in [facility]. RELIABILITY: Fair. CHIEF COMPLAINT: Left hip pain. HISTORY OF PRESENT ILLNESS: This is an 81-year-old female, hospitalized in October of 2006 with what was thought to be sacroiliitis. She followed up with Goran Coy, who is orthopedic surgeon in [place] had been doing well, however , sometime around 04/16/17, she started to develop a right hip pain. The right hip pain migrated to the left and she presented to our ER on the after developing left hip pain following a fall. She is diagnosed with a hip contusion and sent home. She was doing well with Tylenol and Aleve controlling her pain and she additionally had a left hip injection with cortisone at with some improvement, although noted to be "not much" by her daughter with continued discomfort. Again, she had a fall either on the 04/29/17 or 04/30/17 where she hit her right shoulder after her leg "gave out." Since that time, she has been using a walker, whereas previously she was ambulating independently. Today, she woke up and had 10/10 burning, aching, left hip pain that was worse with standing without radiation with no pain with movement. Because of worsening pain and inability to control pain at home and inability to care for herself at home, she presented to the emergency room. In the emergency room, she received morphine and Toradol without improvement of the pain and she was unable to ambulate. She was noted to be hyponatremic and hospitalist service was consulted for admission. PAST MEDICAL HISTORY: 1. Right hip sacroiliitis. 2. Left hip injection, status post contusion, end of March. 3. Type 2 diabetes. 4. Hypertension. 5. CAD, status post 4-vessel CABG in 1999. 6. Denies COPD, although per chart review, COPD. 7. MO, overnight CPAP. 8. Chronic respiratory failure requiring 3 L at night. 9. Irritable bowel syndrome. 10. Hypothyroidism. 11. Restless leg syndrome. 12. Anxiety. SOCIAL HISTORY: No tobacco, alcohol, or illicits. Lives alone. Previously ambulating independently; now using a walker. FAMILY HISTORY: CAD and hypertension. ALLERGIES: To PAROXETINE, SIMVASTATIN, CODEINE, OXYCODONE and TRAMADOL, although did receive morphine in the emergency room. MEDICATIONS: Include: 1. Motrin 600 mg every 6 hours as needed for pain. 2. Tylenol 650 mg every 4 hours as needed for pain. 3. Metformin ER 500 mg daily. 4. Alprazolam 0.5 mg at bedtime as needed for anxiety. 5. Norvasc 10 mg daily. 6. Multivitamin 1 tab daily. 7. Lisinopril/hydrochlorothiazide 20/12.5 1 tab daily. 8. Synthroid 112 mcg daily. 9. Aspirin 81 mg daily. REVIEW OF SYSTEMS: As per HPI. Otherwise, all other systems negative. PHYSICAL EXAMINATION GENERAL: Younger than stated age, lying 35 degrees in bed, interactive. VITAL SIGNS: Vitals 153/54, heart rate is 58, respiratory rate 16, T-max in the emergency room 98.3. She is 98% on room air. HEENT: Oropharynx is clear. Moist mucous membranes. Sclerae are anicteric. LUNGS: Clear to auscultation. HEART: She has a regular rate and rhythm. ABDOMEN: Soft, nontender, nondistended. EXTREMITIES: Warm, well perfused without clubbing, cyanosis, or edema. She has tenderness over the left hip as well as close to her anterior inferior iliac spine. The muscle feels tense. She has a full range of motion, full passive and active in her left hip. No motor or sensory deficits. DIAGNOSTIC STUDIES/LAB DATA: Labs reviewed, notable for sodium 125, bicarb 21 , chloride 93, urine with a specific gravity of 1.009. Data reviewed, hip x-ray, impression: Mild bilateral osteoarthritic changes in the hips. ASSESSMENT AND PLAN: This is an 81-year-old female who presented to the hospital with worsening left hip pain after recent injection on 04/27/17 and a repeat fall on the 04/29/17 or 04/30/17. 1. Left hip pain, suspect bursitis. Recent records from Dr. Fernandez would be useful at this point. I have ordered PT as well as social work, as daughter ___ _requesting_ that patient will need subacute rehab and unable to care for herself at home. I am unclear if this will qualify for three acute hospital stays. I will continue Ketorolac as well as Tylenol. Add morphine as needed. One dose of methylprednisolone now and start Flexeril, reevaluate in the morning. 2. Hyponatremia. Normal saline now, recheck in the morning. 3. Obstructive sleep apnea. The patient has her own machine. Continue CPAP overnight. 4. Hypertension, continue all home medications. 5. Hypothyroidism. Continue home medications. [id number]/[facility] #: [id number] MTDD
[2017-05-03] MEDS: Cyclobenzaprine TAB* 10 MG PO PRN ×4 (05:19→22:38)
[2017-05-03] MEDS: Levothyroxine TAB* 112 MCG TAB PO SCH (05:19)
[2017-05-03] MEDS: Heparin VIAL(*) 5000 UNITS/ML VIAL (FIVE THOUSAND) SUBCUT SCH ×3 (05:20→20:07)
[2017-05-03 06:24] LABS: BUN/Creatinine Ratio 32.2 (8-20); Calcium 8.6 mg/dL (8.6-10.3); EGFR Non-African American 45.1 (>60); Potassium 4.7 mmol/L (3.5-5.0)
[2017-05-03 06:46] LABS: TSH (Thyroid Stimulating Horm) 0.47 mcIU/mL (0.34-5.60)
[2017-05-03] MEDS: metFORMIN* 500 MG TAB PO SCH (08:07)
[2017-05-03] MEDS: Aspirin EC Low Dose* 81 MG TAB.EC PO SCH (08:07)
[2017-05-03] MEDS: Lisinopril TAB* 10 MG PO SCH (08:07)
[2017-05-03] MEDS: amLODIPine TAB* 5 MG PO SCH (08:07)
[2017-05-03] MEDS: Acetaminophen TAB* 325 MG PO PRN (13:09)
--- NOTE | 2017-05-03 13:50 | PN ---
Subjective Date of Service: 05/03/17 Interval History: Ms. Hawkins worked with PT this morning and feels good. The toradol is helping her pain. She was able to bear weight on the left leg and do stretches with PT. She still complains of point tenderness to the left outer hip, but no weakness, numbness, tingling. Denies thirst, polyuria. Family History: Unchanged from Admission Social History: Unchanged from Admission Past Medical History: Unchanged from Admission Objective Active Medications: Acetaminophen (Tylenol Tab*) 650 mg PO Q4H PRN PRN Reason: FEVER/PAIN Last Admin: 05/03/17 13:09 Dose: 650 mg Alprazolam (Xanax Tab*) 0.5 mg PO BEDTIME PRN PRN Reason: ANXIETY Amlodipine Besylate (Norvasc Tab*) 10 mg PO DAILY [facility] Last Admin: 05/03/17 08:07 Dose: 10 mg Aspirin (Aspirin Ec Low Dose*) 81 mg PO DAILY [facility] Last Admin: 05/03/17 08:07 Dose: 81 mg Cyclobenzaprine HCl (Flexeril Tab*) 10 mg PO TID PRN PRN Reason: PAIN Last Admin: 05/03/17 13:09 Dose: 10 mg Heparin Sodium (Porcine) (Heparin Vial(*)) 5,000 units SUBCUT Q8HR [facility] Last Admin: 05/03/17 13:07 Dose: 5,000 units Ketorolac Tromethamine (Toradol Inj*) 30 mg IV PUSH Q6H PRN PRN Reason: PAIN Last Admin: 05/03/17 10:02 Dose: 30 mg Levothyroxine Sodium (Synthroid Tab*) 112 mcg PO DAILY@0600 [facility] Last Admin: 05/03/17 05:19 Dose: 112 mcg Lisinopril (Prinivil Tab*) 20 mg PO DAILY [facility] Last Admin: 05/03/17 08:07 Dose: 20 mg Metformin HCl (Glucophage*) 500 mg PO DAILY [facility] Last Admin: 05/03/17 08:07 Dose: 500 mg Ondansetron HCl (Zofran Odt Tab*) 4 mg SL Q6H PRN PRN Reason: NAUSEA/VOMITING Last Admin: 05/01/17 22:33 Dose: 4 mg Ondansetron HCl (Zofran Inj*) 4 mg IV Q4H PRN PRN Reason: NAUSEA/VOMITING Vital Signs 05/02/17 05/02/17 05/02/17 15:19 15:43 17:43 Temperature 97.9 F Pulse Rate 66 Respiratory 18 10 16 Rate Blood Pressure 111/44 (mmHg) O2 Sat by Pulse 95 Oximetry 05/02/17 05/02/17 05/03/17 19:26 22:00 03:35 Temperature 97.5 F 98.0 F 97.7 F Pulse Rate 72 61 67 Respiratory 16 16 18 Rate Blood Pressure 113/48 99/30 127/49 (mmHg) O2 Sat by Pulse 95 99 96 Oximetry 05/03/17 05/03/17 05/03/17 05:19 08:01 08:07 Temperature 97.5 F Pulse Rate 50 Respiratory 20 16 18 Rate Blood Pressure 112/41 (mmHg) O2 Sat by Pulse 99 Oximetry 05/03/17 13:09 Temperature Pulse Rate Respiratory 18 Rate Blood Pressure (mmHg) O2 Sat by Pulse Oximetry Oxygen Devices in Use Now: None Appearance: alert, well appearing, poor short term memory Eyes: No Scleral Icterus, PERRLA Ears/Nose/Mouth/Throat: NL Teeth, Lips, Gums, Clear Oropharnyx Neck: NL Appearance and Movements; NL JVP, Trachea Midline Respiratory: Symmetrical Chest Expansion and Respiratory Effort, Clear to Auscultation Cardiovascular: NL Sounds; No Murmurs; No JVD, RRR Abdominal: NL Sounds; No Tenderness; No Distention, No Hepatosplenomegaly Lymphatic: No Cervical Adenopathy, No Axillary Adenopathy Extremities: No Edema, - - left greater trochanter tender to palpation, worsened by adduction Skin: No Rash or Ulcers Neurological: Alert and Oriented x 3 Result Diagrams: 05/02/17 00:12 05/03/17 12:16 Assess/Plan/Problems-Billing Assessment: 1. Trochanteric Bursitis s/p injection 4 days ago; repeat cortisone injection not likely to be helpful. Continue NSAIDs and PT for stretches and other supportive care. No suggestion of hip joint pathology on imaging or on my examination. 2. Hyponatremia. Awaiting urine and serum osmolarity. Appears euvolemic on my exam. TSH normal ; urine sodium 37. She did take hctz, which may be contributing. Sodium worsened with NS, however is unchanged this morning without NS. Will try free water restriction. 3. CAD s/p CABG Continue asa/statin 4. MO on cpap tolerates cpap well, continue at home settings.
[2017-05-03] MEDS: Morphine INJ* 2 MG/ML 1 ML SYRINGE IV PRN ×2 (15:06→20:02)
[2017-05-04] MEDS: Morphine INJ* 2 MG/ML 1 ML SYRINGE IV PRN ×3 (00:01→08:41)
[2017-05-04] MEDS ORDERED: Morphine INJ* 2 MG/ML 1 ML SYRINGE ONE (02:13)
[2017-05-04] MEDS ORDERED: Morphine INJ* 2 MG/ML 1 ML SYRINGE IV ONE (03:00)
[2017-05-04] MEDS: Levothyroxine TAB* 112 MCG TAB PO SCH (06:01)
[2017-05-04] MEDS: Heparin VIAL(*) 5000 UNITS/ML VIAL (FIVE THOUSAND) SUBCUT SCH ×3 (06:01→21:21)
[2017-05-04] MEDS: Ketorolac INJ* 30 MG/ML 1 ML VIAL IV PUSH PRN ×3 (06:06→21:20)
[2017-05-04 06:35] LABS: BUN/Creatinine Ratio 35.4 (8-20); Calcium 8.5 mg/dL (8.6-10.3); EGFR African American 71.4 (>60); EGFR Non-African American 55.5 (>60)
[2017-05-04] MEDS: Cyclobenzaprine TAB* 10 MG PO PRN ×2 (07:52→17:13)
[2017-05-04] MEDS: Acetaminophen TAB* 325 MG PO PRN (07:52)
[2017-05-04] MEDS: metFORMIN* 500 MG TAB PO SCH (07:54)
[2017-05-04] MEDS: Aspirin EC Low Dose* 81 MG TAB.EC PO SCH (07:54)
[2017-05-04] MEDS: Lisinopril TAB* 10 MG PO SCH (07:55)
[2017-05-04] MEDS: amLODIPine TAB* 5 MG PO SCH (07:55)
[2017-05-04 14:27] LABS: BUN/Creatinine Ratio 35.6 (8-20); Calcium 8.8 mg/dL (8.6-10.3); EGFR African American 67.3 (>60); EGFR Non-African American 52.3 (>60); Potassium 5.1 mmol/L (3.5-5.0)
[2017-05-04] MEDS ORDERED: NS 0.45% 1000 ML BAG* 1,000 ML IV SCH (16:00)
--- NOTE | 2017-05-04 18:08 | PN ---
Subjective Date of Service: 05/04/17 Interval History: Pain is worse today. She has been taking morphine regularly, with little relief. She still describes the pain as in the lateral left hip without radiation. Denies shortness of breath, nausea, dysuria, or polyuria. Family History: Unchanged from Admission Social History: Unchanged from Admission Past Medical History: Unchanged from Admission Objective Active Medications: Acetaminophen (Tylenol Tab*) 650 mg PO Q4H PRN PRN Reason: FEVER/PAIN Last Admin: 05/04/17 07:52 Dose: 650 mg Alprazolam (Xanax Tab*) 0.5 mg PO BEDTIME PRN PRN Reason: ANXIETY Amlodipine Besylate (Norvasc Tab*) 10 mg PO DAILY [facility] Last Admin: 05/04/17 07:55 Dose: 10 mg Aspirin (Aspirin Ec Low Dose*) 81 mg PO DAILY [facility] Last Admin: 05/04/17 07:54 Dose: 81 mg Cyclobenzaprine HCl (Flexeril Tab*) 10 mg PO TID PRN PRN Reason: PAIN Last Admin: 05/04/17 17:13 Dose: 10 mg Heparin Sodium (Porcine) (Heparin Vial(*)) 5,000 units SUBCUT Q8HR [facility] Last Admin: 05/04/17 12:35 Dose: 5,000 units Ketorolac Tromethamine (Toradol Inj*) 30 mg IV PUSH Q6H PRN PRN Reason: PAIN Last Admin: 05/04/17 12:34 Dose: 30 mg Levothyroxine Sodium (Synthroid Tab*) 112 mcg PO DAILY@0600 [facility] Last Admin: 05/04/17 06:01 Dose: 112 mcg Lisinopril (Prinivil Tab*) 20 mg PO DAILY [facility] Last Admin: 05/04/17 07:55 Dose: 20 mg Metformin HCl (Glucophage*) 500 mg PO DAILY [facility] Last Admin: 05/04/17 07:54 Dose: 500 mg Morphine Sulfate (Morphine Inj (Syringe)*) 1 mg IV Q4H PRN PRN Reason: PAIN - MILD Last Admin: 05/04/17 08:41 Dose: 1 mg Ondansetron HCl (Zofran Odt Tab*) 4 mg SL Q6H PRN PRN Reason: NAUSEA/VOMITING Last Admin: 05/01/17 22:33 Dose: 4 mg Ondansetron HCl (Zofran Inj*) 4 mg IV Q4H PRN PRN Reason: NAUSEA/VOMITING Vital Signs 05/03/17 05/03/17 05/03/17 20:00 20:02 20:03 Temperature 97.6 F Pulse Rate 64 Respiratory 19 22 18 Rate Blood Pressure 120/52 (mmHg) O2 Sat by Pulse 94 Oximetry 05/03/17 05/03/17 05/03/17 21:02 22:38 23:05 Temperature 97.5 F Pulse Rate 60 Respiratory 20 20 20 Rate Blood Pressure 144/52 (mmHg) O2 Sat by Pulse 96 Oximetry 05/03/17 05/04/17 05/04/17 23:13 00:01 00:38 Temperature 97.5 F Pulse Rate 60 Respiratory 20 20 20 Rate Blood Pressure 144/52 (mmHg) O2 Sat by Pulse 96 Oximetry 05/04/17 05/04/17 05/04/17 01:01 02:20 03:18 Temperature 98.1 F Pulse Rate 61 Respiratory 16 22 20 Rate Blood Pressure 126/53 (mmHg) O2 Sat by Pulse 99 Oximetry 05/04/17 05/04/17 05/04/17 04:06 07:52 07:59 Temperature 97.5 F Pulse Rate 59 Respiratory 18 18 18 Rate Blood Pressure 140/58 (mmHg) O2 Sat by Pulse 96 Oximetry 05/04/17 05/04/17 05/04/17 08:00 08:41 09:41 Temperature Pulse Rate Respiratory 18 14 14 Rate Blood Pressure (mmHg) O2 Sat by Pulse Oximetry 05/04/17 05/04/17 05/04/17 11:24 14:22 14:25 Temperature 97.8 F 98 F Pulse Rate 57 68 Respiratory 20 18 18 Rate Blood Pressure 126/42 95/43 (mmHg) O2 Sat by Pulse 91 100 Oximetry 05/04/17 05/04/17 14:28 17:13 Temperature Pulse Rate Respiratory 18 18 Rate Blood Pressure (mmHg) O2 Sat by Pulse Oximetry Oxygen Devices in Use Now: None Appearance: alert, uncomfortable, no distress Ears/Nose/Mouth/Throat: NL Teeth, Lips, Gums, Clear Oropharnyx Neck: NL Appearance and Movements; NL JVP, Trachea Midline Respiratory: Symmetrical Chest Expansion and Respiratory Effort, Clear to Auscultation Cardiovascular: NL Sounds; No Murmurs; No JVD, RRR Abdominal: NL Sounds; No Tenderness; No Distention, No Hepatosplenomegaly Lymphatic: No Cervical Adenopathy Extremities: No Edema, - - exquisitely tender to palpation over left greater trochanter, full range of motion without pain, reflexes 2+ b/l Skin: No Rash or Ulcers Neurological: Alert and Oriented x 3 Result Diagrams: 05/02/17 00:12 05/04/17 13:48 Assess/Plan/Problems-Billing Assessment: 1. Trochanteric Bursitis Not responding to supportive care. Ortho consulted today. S/p cortisone injection 5 days ago without relief as well. Continue NSAIDs and PT for stretches. No suggestion of hip joint pathology on imaging or on my examination. 2. Hyponatremia. Awaiting urine and serum osmolarity. Appears euvolemic on my exam. TSH normal ; urine sodium 37. She did take hctz, which may be contributing. Sodium worsened with NS, however I am concerned that she is becoming volume deplete based on her BUN:creatinine ratio while on a free water restriction. May need to trial NS again. 3. CAD s/p CABG Continue asa/statin 4. MO on cpap tolerates cpap well, continue at home settings.
[2017-05-04 19:51] LABS: BUN/Creatinine Ratio 34.3 (8-20); Calcium 8.5 mg/dL (8.6-10.3); EGFR African American 64.4 (>60); EGFR Non-African American 50.1 (>60); Potassium 5.2 mmol/L (3.5-5.0)
[2017-05-04] MEDS: ALPRAZolam TAB* 0.5 MG PO PRN (21:20)
[2017-05-04] MEDS: Docusate CAP* 100 MG PO PRN (21:20)
[2017-05-05] MEDS: Cyclobenzaprine TAB* 10 MG PO PRN ×3 (04:04→16:32)
[2017-05-05 05:49] LABS: BUN/Creatinine Ratio 37.1 (8-20); Calcium 8.4 mg/dL (8.6-10.3); EGFR African American 70.5 (>60); EGFR Non-African American 54.8 (>60)
[2017-05-05] MEDS: Levothyroxine TAB* 112 MCG TAB PO SCH (05:55)
[2017-05-05] MEDS: Heparin VIAL(*) 5000 UNITS/ML VIAL (FIVE THOUSAND) SUBCUT SCH ×3 (05:55→21:29)
[2017-05-05] MEDS: Docusate CAP* 100 MG PO PRN (09:13)
[2017-05-05] MEDS: amLODIPine TAB* 5 MG PO SCH (09:13)
[2017-05-05] MEDS: Lisinopril TAB* 10 MG PO SCH (09:13)
[2017-05-05] MEDS: metFORMIN* 500 MG TAB PO SCH (09:14)
[2017-05-05] MEDS: Aspirin EC Low Dose* 81 MG TAB.EC PO SCH (09:14)
[2017-05-05] MEDS: Morphine INJ* 2 MG/ML 1 ML SYRINGE IV PRN ×3 (10:21→21:30)
[2017-05-05] MEDS ORDERED: NS 0.9% 1000 ML* 1,000 ML IV ONE (12:29)
[2017-05-05] MEDS: Polyethylene Glycol 3350* 17 GM PACKET PO SCH (13:20)
[2017-05-05] MEDS ORDERED: methylPREDNISolone ACETATE 80* 80 MG/ML 1 ML VIAL IM ONE (14:02)
[2017-05-05] MEDS: Ketorolac INJ* 30 MG/ML 1 ML VIAL IV PUSH PRN ×2 (14:05→20:03)
--- NOTE | 2017-05-05 17:20 | PN ---
Progress Note - Progress Note Date of Service: 05/05/17 Note: After obtaining consent from the patient and timeout preformed, the skin was prepped with 3 Betadine swabs and alcohol swabs. 80 mg DepoMedrol and 4 cc 2% plain lidocaine was injected into the point of maximum tenderness at the left trochanteric bursa. Bandaid applied to needle site. She tolerated the injection without complications.
--- NOTE | 2017-05-05 17:44 | PN ---
Subjective Date of Service: 05/05/17 Interval History: This is an 81 yo female who presented with a complaint of hip pain and found to be profoundly hyponatremic. She was admitted for management of hyponatremia. Her HCTZ was stopped and she has been placed on a 1500 ml daily fluid restriction. Initial XR shows no fracture. Patient continues to c/o hip pain, but denies DUONG, confusion or lethargy. Objective Active Medications: Acetaminophen (Tylenol Tab*) 650 mg PO Q4H PRN PRN Reason: FEVER/PAIN Last Admin: 05/04/17 07:52 Dose: 650 mg Alprazolam (Xanax Tab*) 0.5 mg PO BEDTIME PRN PRN Reason: ANXIETY Last Admin: 05/04/17 21:20 Dose: 0.5 mg Amlodipine Besylate (Norvasc Tab*) 10 mg PO DAILY [facility] Last Admin: 05/05/17 09:13 Dose: 10 mg Aspirin (Aspirin Ec Low Dose*) 81 mg PO DAILY [facility] Last Admin: 05/05/17 09:14 Dose: 81 mg Cyclobenzaprine HCl (Flexeril Tab*) 10 mg PO TID PRN PRN Reason: PAIN Last Admin: 05/05/17 16:32 Dose: 10 mg Docusate Sodium (Colace Cap*) 100 mg PO BID PRN PRN Reason: CONSTIPATION Last Admin: 05/05/17 09:13 Dose: 100 mg Heparin Sodium (Porcine) (Heparin Vial(*)) 5,000 units SUBCUT Q8HR [facility] Last Admin: 05/05/17 14:05 Dose: 5,000 units Ketorolac Tromethamine (Toradol Inj*) 30 mg IV PUSH Q6H PRN PRN Reason: PAIN Last Admin: 05/05/17 14:05 Dose: 30 mg Levothyroxine Sodium (Synthroid Tab*) 112 mcg PO DAILY@0600 [facility] Last Admin: 05/05/17 05:55 Dose: 112 mcg Lisinopril (Prinivil Tab*) 20 mg PO DAILY [facility] Last Admin: 05/05/17 09:13 Dose: 20 mg Metformin HCl (Glucophage*) 500 mg PO DAILY [facility] Last Admin: 05/05/17 09:14 Dose: 500 mg Morphine Sulfate (Morphine Inj (Syringe)*) 1 mg IV Q4H PRN PRN Reason: PAIN - MILD Last Admin: 05/05/17 16:32 Dose: 1 mg Ondansetron HCl (Zofran Odt Tab*) 4 mg SL Q6H PRN PRN Reason: NAUSEA/VOMITING Last Admin: 05/01/17 22:33 Dose: 4 mg Ondansetron HCl (Zofran Inj*) 4 mg IV Q4H PRN PRN Reason: NAUSEA/VOMITING Polyethylene Glycol/Electrolytes (Miralax*) 17 gm PO DAILY [facility] Last Admin: 05/05/17 13:20 Dose: 17 gm Vital Signs: Temp Pulse Resp BP Pulse Ox 97.8 F 67 20 139/51 96 05/05/17 13:55 05/05/17 13:55 05/05/17 16:32 05/05/17 13:55 05/05/17 13:55 Oxygen Devices in Use Now: None Appearance: Well appearing elderly female lying comfortably Respiratory: Symmetrical Chest Expansion and Respiratory Effort, Clear to Auscultation Cardiovascular: NL Sounds; No Murmurs; No JVD, RRR Abdominal: NL Sounds; No Tenderness; No Distention Extremities: No Edema Skin: No Rash or Ulcers Neurological: Alert and Oriented x 3 Result Diagrams: 05/02/17 00:12 05/05/17 05:15 Assess/Plan/Problems-Billing Assessment: This is an 81 yo female with h/o CAD and MO with HTN who presented with c/o hip pain and found to have severe hyponatremia. Hip pain appears to be a trochanteric bursitis, admitted for management of Na. - Patient Problems (1) Hyponatremia Comment: No significant improvement to mod fluid restriction and stopping HCTZ Initial serum osm slightly low Will trial 1L NS and repeat labs this evening and again tomorrow am Appears euvolemic on exam No offending medications assoicated with SIADH Urine osm pend (2) Hip pain Comment: Clinically c/w trochanteric bursitis Pending ortho consult No improvement with PT or NSAIDs (3) CAD (coronary artery disease) Comment: Asx Cont med management (4) MO (obstructive sleep apnea) (5) DNR (do not resuscitate) (6) DVT prophylaxis Comment: Heparin SQ Status and Disposition: Inpatient. Pending ortho consult, cont tx for hyponatremia. Will likely require [facility], [facility].
--- NOTE | 2017-05-05 17:50 | CONS ---
ORTHOPEDIC CONSULTATION: DATE OF CONSULT/DICTATION: 05/05/17 ATTENDING PHYSICIAN: Chris Hough MD. ATTENDING ORTHOPEDIC PHYSICIAN: Darell Wing MD. (DICTATED BY FELICITY AGUILERA) CHIEF COMPLAINT: Left lateral hip pain. HISTORY OF PRESENT ILLNESS: The patient is a pleasant 81-year-old female who has had difficulties with sacroiliitis bilaterally since October. She has been seeing Dr. Goran Fernandez in [place] and underwent injection therapy for her sacroiliitis. The patient initially had right hip pain and presented to the emergency department after developing left hip pain following a fall. Her x- rays did not reveal a fracture and was found to have a contusion. She was still having discomfort in the "left hip" and underwent a cortisone injection on 04/27/17. Per the patient's recollection, it was not in the lateral dorsal area of the hip but in the sacroiliac region on the left. She continues to have discomfort with burning pain directly over the trochanteric region with some radiation down the lateral thigh. Due to the fact that the pain is exacerbated with ambulation and she could not care for herself and ambulate independently, she was admitted to the medical service. She was started on ketorolac and oral pain medications and has not seen significant relief in her pain, therefore, orthopedic consultation is sought out. PAST MEDICAL HISTORY: Significant for sacroiliitis, type 2 diabetes, hypertension, coronary artery disease, COPD, obstructive sleep apnea, irritable bowel syndrome, hypothyroidism, restless leg syndrome, anxiety. MEDICATIONS: 1. Motrin. 2. Tylenol. 3. Metformin. 4. Alprazolam. 5. Norvasc. 5. Multivitamin. 6. Lisinopril. 7. Hydrochlorothiazide. 8. Synthroid. 9. Baby aspirin. ALLERGIES: PAROXETINE, SIMVASTATIN, CODEINE, OXYCODONE, and TRAMADOL. SOCIAL HISTORY: She denies use of alcohol, tobacco, or previous illicit drug use. She lives alone at home. Previously ambulating independently and currently using a walker due to her increased hip and sacroiliac pain. PHYSICAL EXAM: Her vital signs are stable with a temperature of 97.8, pulse 54 , respiratory rate 16, O2 sat is 96% on room air, BP 126/36. The patient is pleasant and cooperative. She is alert and oriented x3, lying supine in her bed , resting comfortably. On examination of the left hip, she is able to do an active straight leg raise. She is actively able to flex her hip to 120 degrees without leg or groin pain. Passively, she has full flexion, internal external rotation without groin pain, mild lateral hip pain. She has no obvious swelling deformity, ecchymosis or warmth, but she is point tender directly over the left greater trochanteric region. She has excellent circulation and sensation distally with a 2+ pedal pulse and full dorsiflexion and plantar flexion of her left ankle. DIAGNOSTIC STUDIES/LAB DATA: White count normal at 9.4. X-ray examination performed of the left hip and pelvis show some mild degenerative changes in bilateral hips. No obvious fractures or other bony abnormality identified. IMPRESSION: Trochanteric bursitis, left hip. PLAN: I did again review with the patient that her most recent cortisone injection was indeed not in the left bursal region on 04/27/17, but in the sacroiliac region. I am offering her a Depo-Medrol cortisone injection to the left bursal region and she would like to proceed. We will obtain the consent and proceed with the cortisone injection to see if this gives her relief of her symptoms. If she continues to have ongoing lateral hip pain, I will consider an MRI to rule out any occult cause for her ongoing pain. FELICITY AGUILERA [id number]/[facility] #: [id number] BOBBY
[2017-05-05 18:23] LABS: BUN/Creatinine Ratio 29.5 (8-20); Calcium 8.4 mg/dL (8.6-10.3); EGFR African American 72.2 (>60); EGFR Non-African American 56.2 (>60); Potassium 4.7 mmol/L (3.5-5.0)
[2017-05-05] MEDS ORDERED: NS 0.9% 1000 ML* 1,000 ML IV SCH (19:15)
[2017-05-06] MEDS: ALPRAZolam TAB* 0.5 MG PO PRN ×2 (01:17→10:11)
[2017-05-06] MEDS: Heparin VIAL(*) 5000 UNITS/ML VIAL (FIVE THOUSAND) SUBCUT SCH ×3 (06:31→21:21)
[2017-05-06] MEDS: Levothyroxine TAB* 112 MCG TAB PO SCH (06:31)
[2017-05-06 06:36] LABS: BUN/Creatinine Ratio 28.7 (8-20); Calcium 8.4 mg/dL (8.6-10.3); EGFR African American 73.1 (>60); EGFR Non-African American 56.9 (>60); Potassium 5.1 mmol/L (3.5-5.0)
[2017-05-06] MEDS: amLODIPine TAB* 5 MG PO SCH (07:28)
[2017-05-06] MEDS: metFORMIN* 500 MG TAB PO SCH (07:28)
[2017-05-06] MEDS: Polyethylene Glycol 3350* 17 GM PACKET PO SCH (07:28)
[2017-05-06] MEDS: Cyclobenzaprine TAB* 10 MG PO PRN ×2 (07:29→17:48)
[2017-05-06] MEDS: Lisinopril TAB* 10 MG PO SCH (07:29)
[2017-05-06] MEDS: Aspirin EC Low Dose* 81 MG TAB.EC PO SCH (07:29)
--- NOTE | 2017-05-06 11:03 | PN ---
Subjective Date of Service: 05/06/17 Interval History: Patient was evaluated by ortho yesterday, who agreed that her pain was likely due to GT bursitis and she underwent steroid bursa injection. She reports that her hip pain has nearly resolved but now has anterior knee pain. She reports that she is also quite constipated. Objective Active Medications: Acetaminophen (Tylenol Tab*) 650 mg PO Q4H PRN PRN Reason: FEVER/PAIN Last Admin: 05/04/17 07:52 Dose: 650 mg Alprazolam (Xanax Tab*) 0.5 mg PO BID PRN PRN Reason: ANXIETY Last Admin: 05/06/17 10:11 Dose: 0.5 mg Amlodipine Besylate (Norvasc Tab*) 10 mg PO DAILY [facility] Last Admin: 05/06/17 07:28 Dose: 10 mg Aspirin (Aspirin Ec Low Dose*) 81 mg PO DAILY [facility] Last Admin: 05/06/17 07:29 Dose: 81 mg Cyclobenzaprine HCl (Flexeril Tab*) 10 mg PO TID PRN PRN Reason: PAIN Last Admin: 05/06/17 07:29 Dose: 10 mg Docusate Sodium (Colace Cap*) 100 mg PO BID PRN PRN Reason: CONSTIPATION Last Admin: 05/05/17 09:13 Dose: 100 mg Heparin Sodium (Porcine) (Heparin Vial(*)) 5,000 units SUBCUT Q8HR [facility] Last Admin: 05/06/17 06:31 Dose: 5,000 units Ketorolac Tromethamine (Toradol Inj*) 30 mg IV PUSH Q6H PRN PRN Reason: PAIN Last Admin: 05/05/17 20:03 Dose: 30 mg Levothyroxine Sodium (Synthroid Tab*) 112 mcg PO DAILY@0600 [facility] Last Admin: 05/06/17 06:31 Dose: 112 mcg Lisinopril (Prinivil Tab*) 20 mg PO DAILY [facility] Last Admin: 05/06/17 07:29 Dose: 20 mg Metformin HCl (Glucophage*) 500 mg PO DAILY [facility] Last Admin: 05/06/17 07:28 Dose: 500 mg Morphine Sulfate (Morphine Inj (Syringe)*) 1 mg IV Q4H PRN PRN Reason: PAIN - MILD Last Admin: 05/05/17 21:30 Dose: 1 mg Ondansetron HCl (Zofran Odt Tab*) 4 mg SL Q6H PRN PRN Reason: NAUSEA/VOMITING Last Admin: 05/01/17 22:33 Dose: 4 mg Ondansetron HCl (Zofran Inj*) 4 mg IV Q4H PRN PRN Reason: NAUSEA/VOMITING Polyethylene Glycol/Electrolytes (Miralax*) 17 gm PO DAILY [facility] Last Admin: 05/06/17 07:28 Dose: 17 gm Prednisone (Deltasone Tab*) 5 mg PO DAILY [facility] Vital Signs: Temp Pulse Resp BP Pulse Ox 97.8 F 69 20 136/64 97 05/06/17 07:49 05/06/17 07:49 05/06/17 10:11 05/06/17 07:49 05/06/17 07:49 Oxygen Devices in Use Now: None Appearance: Elderly female who appears fatigued in NAD Respiratory: Symmetrical Chest Expansion and Respiratory Effort, Clear to Auscultation Cardiovascular: NL Sounds; No Murmurs; No JVD, RRR Extremities: No Edema, - - no TTP over lateral hip, some TTP over anterior knee , no ecchymosis or derangements Skin: No Rash or Ulcers Neurological: Alert and Oriented x 3 Result Diagrams: 05/02/17 00:12 05/06/17 06:05 Assess/Plan/Problems-Billing Assessment: This is an 81 yo female with h/o CAD and MO with HTN who presented with c/o hip pain and found to have severe hyponatremia. Hip pain appears to be a trochanteric bursitis, admitted for management of Na. - Patient Problems (1) Hyponatremia Comment: Noted improvement with NS challenge Also noted mild hyperkalemia which brings up question of adrenal insufficiency Am cortisol <3 Start prednisone 5mg Checking ACTH, renin and aldosterone (2) Hip pain Comment: Secondary to trochanteric bursitis Improved with steroid bursa injection Now c/o knee pain which is anterior (3) CAD (coronary artery disease) Comment: Asx Cont med management (4) MO (obstructive sleep apnea) (5) DNR (do not resuscitate) (6) DVT prophylaxis Comment: Heparin SQ Status and Disposition: Inpatient. Anticipate dc in 1-2 days
--- NOTE | 2017-05-06 11:49 | PN ---
Progress Note - Progress Note Date of Service: 05/06/17 SOAP: Subjective: []Patient seen on commode, she states that her left lateral hip pain is improved after cortisone injection yesterday. She c/o some anterolateral left knee pain. Objective: [] Vital Signs Temp 97.8 F 05/06/17 07:49 Pulse 69 05/06/17 07:49 Resp 20 05/06/17 10:11 BP 136/64 05/06/17 07:49 Pulse Ox 97 05/06/17 07:49 Intake & Output 05/05/17 05/06/17 05/06/17 18:59 06:59 18:59 Intake Total 670 1008 1120 Output Total 240 1250 1000 Balance 430 -242 120 Intake: IV Fluids 1008 1000 NS 1008 1000 Oral 670 0 120 Output: Urine 240 1250 1000 Other: Estimated Void Medium Large Large # Bowel Movements 0 0 # Voids 2 1 2 Laboratory Results - last 24 hr 05/04/17 05/05/17 05/06/17 05:17 17:56 06:05 Sodium 124 L 125 L Potassium 4.7 5.1 H Chloride 96 L 99 L Carbon Dioxide 17 L 20 L Anion Gap 11 6 BUN 28 H 27 H Creatinine 0.95 0.94 Est GFR ( Amer) 72.2 73.1 Est GFR (Non-Af Amer) 56.2 56.9 BUN/Creatinine Ratio 29.5 H 28.7 H Glucose 136 H 151 H Calcium 8.4 L 8.4 L Cortisol 2.72 Urine Osmolality 264 non tender over L G.troch injection site no swelling or erythema L knee full ROM L knee Assessment: []s/p great trochanteric bursitis- improved after Depomedrol injection Plan: []Continue anti inflammatories Follow up in office as needed for bursal pain or knee pain with Dr. Wing in 2 -3 weeks.
[2017-05-06] MEDS: Senna TAB PO SCH ×2 (12:33→21:21)
[2017-05-06] MEDS: predniSONE TAB* 5 MG PO SCH (12:33)
[2017-05-06] MEDS: Morphine INJ* 2 MG/ML 1 ML SYRINGE IV PRN (14:47)
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
[2017-05-07] MEDS: Heparin VIAL(*) 5000 UNITS/ML VIAL (FIVE THOUSAND) SUBCUT SCH ×3 (05:40→21:25)
[2017-05-07] MEDS: Levothyroxine TAB* 112 MCG TAB PO SCH (05:40)
[2017-05-07 06:33] LABS: BUN/Creatinine Ratio 29.2 (8-20); Blood Urea Nitrogen 26 mg/dL (6-24); CO2 Carbon Dioxide 21 mmol/L (22-32); Calcium 8.8 mg/dL (8.6-10.3); Chloride 97 mmol/L (101-111); EGFR African American 77.9 (>60); EGFR Non-African American 60.6 (>60); Glucose 143 mg/dL (70-100); Sodium 125 mmol/L (133-145)
[2017-05-07] MEDS: ALPRAZolam TAB* 0.5 MG PO PRN ×2 (07:35→21:24)
[2017-05-07] MEDS: Senna TAB PO SCH ×2 (07:36→21:25)
[2017-05-07] MEDS: metFORMIN* 500 MG TAB PO SCH (07:36)
[2017-05-07] MEDS: Polyethylene Glycol 3350* 17 GM PACKET PO SCH (07:36)
[2017-05-07] MEDS: predniSONE TAB* 5 MG PO SCH (07:36)
[2017-05-07] MEDS: Lisinopril TAB* 10 MG PO SCH (07:36)
[2017-05-07] MEDS: Aspirin EC Low Dose* 81 MG TAB.EC PO SCH (07:36)
[2017-05-07] MEDS: amLODIPine TAB* 5 MG PO SCH (07:36)
[2017-05-07] MEDS: NS 0.9% 1000 ML* 1,000 ML IV SCH ×2 (08:55→23:35)
[2017-05-07] MEDS: Acetaminophen TAB* 325 MG PO PRN (09:10)
[2017-05-07 09:37] LABS: Anion Gap 7 mmol/L (2-11)
--- NOTE | 2017-05-07 11:07 | PN ---
Subjective Date of Service: 05/07/17 Interval History: Patient reports that her knee pain has resolved but she is having pain in her hip again. No additional complaints. No abd pain, n/v. No CP or SOB. Appetite good. Objective Active Medications: Acetaminophen (Tylenol Tab*) 650 mg PO Q4H PRN PRN Reason: FEVER/PAIN Last Admin: 05/07/17 09:10 Dose: 650 mg Alprazolam (Xanax Tab*) 0.5 mg PO BID PRN PRN Reason: ANXIETY Last Admin: 05/07/17 07:35 Dose: 0.5 mg Amlodipine Besylate (Norvasc Tab*) 10 mg PO DAILY [facility] Last Admin: 05/07/17 07:36 Dose: 10 mg Aspirin (Aspirin Ec Low Dose*) 81 mg PO DAILY [facility] Last Admin: 05/07/17 07:36 Dose: 81 mg Cyclobenzaprine HCl (Flexeril Tab*) 10 mg PO TID PRN PRN Reason: PAIN Last Admin: 05/06/17 17:48 Dose: 10 mg Docusate Sodium (Colace Cap*) 100 mg PO BID PRN PRN Reason: CONSTIPATION Last Admin: 05/05/17 09:13 Dose: 100 mg Heparin Sodium (Porcine) (Heparin Vial(*)) 5,000 units SUBCUT Q8HR [facility] Last Admin: 05/07/17 05:40 Dose: 5,000 units Sodium Chloride (Ns 0.9% 1000 Ml*) 1,000 mls @ 75 mls/hr IV PER RATE [facility] Last Admin: 05/07/17 08:55 Dose: 75 mls/hr Levothyroxine Sodium (Synthroid Tab*) 112 mcg PO DAILY@0600 [facility] Last Admin: 05/07/17 05:40 Dose: 112 mcg Metformin HCl (Glucophage*) 500 mg PO DAILY [facility] Last Admin: 05/07/17 07:36 Dose: 500 mg Morphine Sulfate (Morphine Inj (Syringe)*) 1 mg IV Q4H PRN PRN Reason: PAIN - MILD Last Admin: 05/06/17 14:47 Dose: 1 mg Ondansetron HCl (Zofran Odt Tab*) 4 mg SL Q6H PRN PRN Reason: NAUSEA/VOMITING Last Admin: 05/01/17 22:33 Dose: 4 mg Ondansetron HCl (Zofran Inj*) 4 mg IV Q4H PRN PRN Reason: NAUSEA/VOMITING Polyethylene Glycol/Electrolytes (Miralax*) 17 gm PO DAILY [facility] Last Admin: 05/07/17 07:36 Dose: 17 gm Prednisone (Deltasone Tab*) 5 mg PO DAILY [facility] Last Admin: 05/07/17 07:36 Dose: 5 mg Senna (Senokot Tab*) 1 tab PO BID [facility] Last Admin: 05/07/17 07:36 Dose: 1 tab Vital Signs: Temp Pulse Resp BP Pulse Ox 98.0 F 63 18 145/76 96 05/07/17 07:45 05/07/17 07:45 05/07/17 09:35 05/07/17 07:45 05/07/17 07:45 Oxygen Devices in Use Now: None Appearance: Well appearing elderly female in NAD Respiratory: Symmetrical Chest Expansion and Respiratory Effort, Clear to Auscultation Cardiovascular: NL Sounds; No Murmurs; No JVD, RRR Extremities: No Edema Skin: No Rash or Ulcers Neurological: Alert and Oriented x 3 Result Diagrams: 05/02/17 00:12 05/07/17 09:57 Additional Lab and Data: Laboratory Tests 05/04/17 05/05/17 05/05/17 19:28 05:15 17:56 Sodium 119 L* 121 L 124 L 05/06/17 05/07/17 06:05 06:01 Sodium 125 L 125 L Assess/Plan/Problems-Billing Assessment: This is an 81 yo female with h/o CAD and MO with HTN who presented with c/o hip pain and found to have severe hyponatremia. Hip pain appears to be a trochanteric bursitis, admitted for management of Na. - Patient Problems (1) Hyponatremia Comment: Na is stable since NS challenge Am cortisol low along with mild hyperkalemia suggestive of adrenal insufficiency Empirically started prednisone 5mg Will trial low rate infusion of additional NS along with starting steroid Pending ACTH, renin and aldosterone (2) Hip pain Comment: Secondary to trochanteric bursitis Improved with steroid bursa injection but still complaining of some pain Cont with PT and NSAIDs (3) CAD (coronary artery disease) Comment: Asx Cont med management (4) MO (obstructive sleep apnea) (5) DNR (do not resuscitate) (6) DVT prophylaxis Comment: Heparin SQ Status and Disposition: Inpatient. Anticipate dc in 1-2 days, will need [facility] prior to returning home
[2017-05-07] MEDS: Cyclobenzaprine TAB* 10 MG PO PRN (13:31)
[2017-05-07] MEDS: Morphine INJ* 2 MG/ML 1 ML SYRINGE IV PRN ×2 (14:52→20:12)
[2017-05-08] MEDS: Morphine INJ* 2 MG/ML 1 ML SYRINGE IV PRN (03:20)
[2017-05-08] MEDS: Levothyroxine TAB* 112 MCG TAB PO SCH (06:12)
[2017-05-08] MEDS: Heparin VIAL(*) 5000 UNITS/ML VIAL (FIVE THOUSAND) SUBCUT SCH ×3 (06:13→21:55)
[2017-05-08] MEDS: amLODIPine TAB* 5 MG PO SCH (09:24)
[2017-05-08] MEDS: predniSONE TAB* 5 MG PO SCH (09:33)
[2017-05-08] MEDS: Senna TAB PO SCH ×2 (09:33→21:55)
[2017-05-08] MEDS: Polyethylene Glycol 3350* 17 GM PACKET PO SCH (09:33)
[2017-05-08] MEDS: metFORMIN* 500 MG TAB PO SCH (09:33)
[2017-05-08] MEDS: ALPRAZolam TAB* 0.5 MG PO PRN ×2 (09:33→21:55)
[2017-05-08] MEDS: Aspirin EC Low Dose* 81 MG TAB.EC PO SCH (09:33)
[2017-05-08] MEDS: Acetaminophen TAB* 325 MG PO PRN ×2 (09:33→13:36)
[2017-05-08] MEDS ORDERED: Ketorolac INJ* 15 MG/ML 1 ML VIAL IV PUSH ONE (10:00)
[2017-05-08 11:07] LABS: BUN/Creatinine Ratio 25.6 (8-20); Calcium 8.5 mg/dL (8.6-10.3); Potassium 4.7 mmol/L (3.5-5.0)
--- NOTE | 2017-05-08 11:55 | PN ---
Subjective Date of Service: 05/08/17 Interval History: Patient reports hip pain this am. It became suddenly worse while sitting up to eat breakfast and involved both hips. Now improved with Toradol and lying flat. Objective Active Medications: Acetaminophen (Tylenol Tab*) 650 mg PO Q4H PRN PRN Reason: FEVER/PAIN Last Admin: 05/08/17 09:33 Dose: 650 mg Alprazolam (Xanax Tab*) 0.5 mg PO BID PRN PRN Reason: ANXIETY Last Admin: 05/08/17 09:33 Dose: 0.5 mg Amlodipine Besylate (Norvasc Tab*) 10 mg PO DAILY [facility] Last Admin: 05/08/17 09:24 Dose: Not Given Aspirin (Aspirin Ec Low Dose*) 81 mg PO DAILY [facility] Last Admin: 05/08/17 09:33 Dose: 81 mg Cyclobenzaprine HCl (Flexeril Tab*) 10 mg PO TID PRN PRN Reason: PAIN Last Admin: 05/07/17 13:31 Dose: 10 mg Docusate Sodium (Colace Cap*) 100 mg PO BID PRN PRN Reason: CONSTIPATION Last Admin: 05/05/17 09:13 Dose: 100 mg Heparin Sodium (Porcine) (Heparin Vial(*)) 5,000 units SUBCUT Q8HR [facility] Last Admin: 05/08/17 06:13 Dose: 5,000 units Sodium Chloride (Ns 0.9% 1000 Ml*) 1,000 mls @ 75 mls/hr IV PER RATE [facility] Last Admin: 05/07/17 23:35 Dose: 75 mls/hr Levothyroxine Sodium (Synthroid Tab*) 112 mcg PO DAILY@0600 [facility] Last Admin: 05/08/17 06:12 Dose: 112 mcg Metformin HCl (Glucophage*) 500 mg PO DAILY [facility] Last Admin: 05/08/17 09:33 Dose: 500 mg Morphine Sulfate (Morphine Inj (Syringe)*) 1 mg IV Q4H PRN PRN Reason: PAIN - MILD Last Admin: 05/08/17 03:20 Dose: 1 mg Ondansetron HCl (Zofran Odt Tab*) 4 mg SL Q6H PRN PRN Reason: NAUSEA/VOMITING Last Admin: 05/01/17 22:33 Dose: 4 mg Ondansetron HCl (Zofran Inj*) 4 mg IV Q4H PRN PRN Reason: NAUSEA/VOMITING Polyethylene Glycol/Electrolytes (Miralax*) 17 gm PO DAILY [facility] Last Admin: 05/08/17 09:33 Dose: 17 gm Prednisone (Deltasone Tab*) 5 mg PO DAILY [facility] Last Admin: 05/08/17 09:33 Dose: 5 mg Senna (Senokot Tab*) 1 tab PO BID [facility] Last Admin: 05/08/17 09:33 Dose: 1 tab Vital Signs: Temp Pulse Resp BP Pulse Ox 98.1 F 57 19 99/41 97 05/08/17 07:29 05/08/17 07:29 05/08/17 09:33 05/08/17 07:29 05/08/17 07:29 Oxygen Devices in Use Now: None Appearance: Well appearing in NAD Respiratory: Symmetrical Chest Expansion and Respiratory Effort, Clear to Auscultation Cardiovascular: NL Sounds; No Murmurs; No JVD, RRR Abdominal: NL Sounds; No Tenderness; No Distention Extremities: No Edema, - - TTP over both lateral hips Skin: No Rash or Ulcers Neurological: Alert and Oriented x 3 Result Diagrams: 05/02/17 00:12 05/08/17 09:32 Additional Lab and Data: Laboratory Tests 05/04/17 05/05/17 05/05/17 19:28 05:15 17:56 Sodium 119 L* 121 L 124 L 05/06/17 05/07/17 06:05 06:01 Sodium 125 L 125 L Assess/Plan/Problems-Billing Assessment: This is an 81 yo female with h/o CAD and MO with HTN who presented with c/o hip pain and found to have severe hyponatremia. Hip pain appears to be a trochanteric bursitis, admitted for management of Na. - Patient Problems (1) Hyponatremia Comment: Na improved to near normal Am cortisol low along with mild hyperkalemia suggestive of adrenal insufficiency Empirically started prednisone 5mg Cont NS with restriction of free water Pending ACTH, renin and aldosterone (2) Hip pain Comment: Secondary to trochanteric bursitis Improved with steroid bursa injection but still complaining of some pain Cont with PT and NSAIDs (3) CAD (coronary artery disease) Comment: Asx Cont med management (4) MO (obstructive sleep apnea) (5) DNR (do not resuscitate) (6) DVT prophylaxis Comment: Heparin SQ Status and Disposition: Inpatient. Anticipate dc to [facility] tomorrow
[2017-05-08] MEDS: Cyclobenzaprine TAB* 10 MG PO PRN (13:36)
[2017-05-08] MEDS: NS 0.9% 1000 ML* 1,000 ML IV SCH (13:36)
[2017-05-08] MEDS: Docusate CAP* 100 MG PO PRN (21:55)
[2017-05-09] MEDS: Acetaminophen TAB* 325 MG PO PRN ×2 (03:37→09:36)
[2017-05-09] MEDS: Cyclobenzaprine TAB* 10 MG PO PRN ×2 (03:38→09:36)
[2017-05-09] MEDS: Levothyroxine TAB* 112 MCG TAB PO SCH (05:50)
[2017-05-09] MEDS: Heparin VIAL(*) 5000 UNITS/ML VIAL (FIVE THOUSAND) SUBCUT SCH (05:50)
[2017-05-09 07:08] LABS: BUN/Creatinine Ratio 29.3 (8-20); Blood Urea Nitrogen 27 mg/dL (6-24); CO2 Carbon Dioxide 17 mmol/L (22-32); Calcium 8.3 mg/dL (8.6-10.3); Chloride 102 mmol/L (101-111); EGFR Non-African American 58.3 (>60); Glucose 131 mg/dL (70-100); Sodium 126 mmol/L (133-145)
[2017-05-09 07:13] LABS: Anion Gap 7 mmol/L (2-11)
[2017-05-09] MEDS: Polyethylene Glycol 3350* 17 GM PACKET PO SCH (09:35)
[2017-05-09] MEDS: predniSONE TAB* 5 MG PO SCH (09:36)
[2017-05-09] MEDS: amLODIPine TAB* 5 MG PO SCH (09:36)
[2017-05-09] MEDS: Aspirin EC Low Dose* 81 MG TAB.EC PO SCH (09:36)
[2017-05-09] MEDS: Docusate CAP* 100 MG PO PRN (09:37)
[2017-05-09] MEDS: metFORMIN* 500 MG TAB PO SCH (09:37)
[2017-05-09] MEDS: Senna TAB PO SCH (09:37)
[2017-05-09] MEDS ORDERED: Morphine INJ* 4 MG/ML 1 ML SYRINGE IV PRN (10:10)
--- NOTE | 2017-05-09 12:17 | DS ---
CC: [facility]; Dr. Irvin Schafer; Dr. Jordan Garcia* DATE OF ADMISSION: 05/02/2017. DATE OF DISCHARGE: 05/09/2017. PRIMARY CARE PROVIDER: Dr. Irvin Schafer. CONSULTING ORTHOPEDIC SURGEON: Dr. Darell Wing. FISH FROG OR OYSTER FARMER TO BE REFERRED TO: Dr. Jordan Garcia. DISCHARGING PROVIDER: FELICITY Currie. SUPERVISING PHYSICIAN: Dr. Nico Chao* (dictated by FELICITY Currie). PRIMARY DISCHARGE DIAGNOSES: 1. 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 2. Left trochanteric bursitis, status post corticosteroid injection 05/06/2017. SECONDARY DIAGNOSES: 1. Noninsulin dependent diabetes. 2. Coronary artery disease. 3. Obstructive sleep apnea, compliant with CPAP. DISCHARGE MEDICATIONS: 1. Xanax 0.5 mg p.o. at bedtime as needed. 2. Acetaminophen 650 mg p.o. q.4 hours as needed for pain. 3. Aspirin 81 mg p.o. daily. 4. Ibuprofen 600 mg p.o. q.8 hours as needed for pain. 5. Levothyroxine 112 mcg p.o. daily. 6. Metformin 500 mg p.o. daily. 7. MiraLax 17 gm p.o. daily. 8. Senna one tablet p.o. b.i.d. 9. Amlodipine 10 mg p.o. daily. 10. Prednisone 5 mg p.o. daily. Medication changes: 1. Stop Hydrochlorothiazide and Lisinopril. 2. Start Prednisone. 3. Start bowel regimen. HOSPITAL IMAGING: X-ray of the hip and pelvis demonstrates mild bilateral osteoarthritic changes in the hip with no acute fracture. HOSPITAL COURSE: This is an 81-year-old female with noninsulin dependent diabetes, coronary artery disease, and obstructive sleep apnea who presented to the emergency department with complaints of hip pain. She was incidentally found to be hyponatremic, which was a new finding for her and subsequently admitted for evaluation and treatment. She denied any hyponatremia related symptoms, including headache, fatigue, and confusion. She had no recent new medications or acute illness. In regards to patient's hip pain, x-rays were completed, no fracture, and on exam seemed to consistent with the greater trochanteric bursitis which was initially treated with NSAIDs and physical therapy. In regards to her hip pain, the patient continued to complain of hip pain and underwent consultation with Orthopedic Surgery group who recommended corticosteroid injection into the greater trochanteric bursa which was performed successfully on 05/06/2017. The patient did report a moderate amount of relief after the steroid injection was done. The patient still complained of hip pain intermittently which influenced her ability to ambulate and find comfortable position. Orthopedic Surgery recommended prn NSAIDs and physical therapy for further treatment. Regarding the patient's hyponatremia, she was on Hydrochlorothiazide at the time of admission which was discontinued. She was initially placed on fluid restriction. Sodium did not improve. She was initially trialed with a bolus of normal saline which made her sodium worse and fluid restriction was subsequently continued. Her sodium did not improve significantly with fluid restriction or time from the Hydrochlorothiazide. She was also noted to be mildly hyperkalemic. With the combination of electrolyte abnormalities, it was suspected that adrenal insufficiency may be contributing. A morning cortisol level was checked and was low at 2.7. Baseline ACTH, renin and aldosterone were ordered, but still pending at the time of discharge. The patient was empirically started on 5 mg of Prednisone daily with an additional fluid challenge. Her sodium did improve up to 129 and then fell to 126 prior to discharge, but her potassium remained normal. Again, the patient remains asymptomatic as a result of her hyponatremia. 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 Some noted improvement with initiation of steroid therapy and continuation of her Thiazide diuretic and MARGARITA inhibitor. DISPOSITION AND FOLLOW-UP PLAN: The patient is being discharged to [facility] for subacute rehab. Recommend that she is not restarted on her Thiazide diuretic or MARGARITA inhibitor. Blood pressure has been reasonably well controlled with her Amlodipine. She should continue on 5 mg of Prednisone and an outpatient Endocrinology consult is pending. She requires repeat basic metabolic panel to re- evaluate electrolytes in three to five days. Recommend limited free water intake, but overall fluid restriction does not appear to be necessary at this time. FELICITY CURRIE [id number]/[facility] #: [id number] [facility] BRONX HOSPITALLaila
[2017-05-09 12:30] VITALS: BP 139/51
[2017-05-10 12:47] LABS: ACTH <5.0 pg/mL
[2017-05-11 10:54] LABS: Renin 29 ng/mL/h
== END 2017-05-09 13:30 | disposition home or self-care (01) | DRG 558 ==
LOC: ED 20:56 → MED 05-02 02:31 → OBSVTOIN 05-02 03:00 → INTOOBSV 05-03 09:43 → MED 05-05 01:22
PROVIDERS: ADMIT Internal Medicine; ATTEND Hospitalist
PROC: 3E0U33Z Introduction of Anti-inflammatory into Joints, Percutaneous Approach (ICD-10-PCS; principal; 2017-05-06)
DX: M70.62 Trochanteric bursitis, left hip (principal); J44.9 Chronic obstructive pulmonary disease, unspecified; Z99.81 Dependence on supplemental oxygen; E22.2 Syndrome of inappropriate secretion of antidiuretic hormone; E11.9 Type 2 diabetes mellitus without complications; I25.10 Atherosclerotic heart disease of native coronary artery without angina pectoris; I10 Essential (primary) hypertension; K58.9 Irritable bowel syndrome, unspecified; E03.9 Hypothyroidism, unspecified; G47.33 Obstructive sleep apnea (adult) (pediatric); G25.81 Restless legs syndrome; F41.9 Anxiety disorder, unspecified; Z95.1 Presence of aortocoronary bypass graft; Z79.84 Long term (current) use of oral hypoglycemic drugs; Z88.5 Allergy status to narcotic agent; Z66 Do not resuscitate; Z79.82 Long term (current) use of aspirin
CPT/HCPCS: 36415; 80048; 80053; 81003; 81015; 82024; 82088; 82533; 83930; 83935; 84132; 84244; 84300; 84443; 85025; 87086; A9270-GY; G8978-GP-CL; G8979-GP-CJ; J1040; J1644; J1885; J2270; J2930; J7512

== ENCOUNTER 2017-05-21 12:17 | Emergency (ER) | payer MEDICARE ==
[2017-05-21] MEDS ORDERED: oxyCODONE TAB* 5 MG TAB PO ONE (14:06)
[2017-05-21] MEDS ORDERED: traMADol TAB* 50 MG PO ONE (14:10)
--- NOTE | 2017-05-21 14:22 | RAD ---
Indication: LEFT knee pain. History of bursitis. Comparison: April 22, 2017 LEFT femur radiographs. Technique: LEFT knee: AP, tunnel, crosstable lateral, sunrise views. REPORT AND IMPRESSION: Negative for joint effusion, fracture, or malalignment. Osteophytosis. Moderately severe medial joint space narrowing and partial flattening of the articular surfaces consistent with Kellgren and Agustin grade 3 osteoarthritis. Severe anterior soft tissue swelling. Cellulitis and prepatellar bursitis not excluded.
--- NOTE | 2017-05-21 14:38 | RAD ---
Indication: LEFT hip pain. Denies recent fall. Comparison: May 01, 2017 radiographs. November 07, [address] and pelvis CT. Technique: Noncontrast CT pelvis. Multiplanar reformation including bone algorithm. Report: Severe diverticulosis of the colon without diverticulitis within the [id number]. Post appendectomy. Negative for ascites. Negative for ascites. Small fat-containing umbilical hernia without inflammatory change. Negative for ureteral dilatation. Unremarkable partially distended urinary bladder. Multiple pelvic phleboliths. Negative for lymphadenopathy. No cortical disruption or suspicious trabecular irregularity evident to indicate LEFT hip fracture. Minimal osteophytic lipping. Negative for significant joint space narrowing. Small enthesophytes at the greater trochanter. Multilevel lumbar sacral spine degenerative spondylosis and facet joint osteoarthritis. At L4-L5 there is moderately severe disc space narrowing with large posterior central to LEFT subarticular disc extrusion with cephalad extension which results in moderate acquired central canal stenosis. Grade 1 degenerative L4-L5 anterolisthesis. Moderately severe bilateral L4-L5 foraminal stenosis. No fracture evident within the [id number]. No soft tissue hematoma evident. IMPRESSION: 1. No CT evidence for hip or pelvic fracture. 2. 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 3. New compared with November 07, 2016 large disc extrusion with resulting moderate acquired spinal stenosis at L4-L5. Moderately severe bilateral foraminal stenosis due to degenerative spondylosis and posterior element osteoarthritis..
[2017-05-21] MEDS ORDERED: Ondansetron ODT TAB* 4 MG PO ONE (15:06)
[2017-05-21 15:39] VITALS: BP 151/63
--- NOTE | 2017-05-22 17:15 | ED ---
Lisa Farley Edward, scribed for Mike Awan MD on 05/21/17 at 1331 . Lower Extremity - HPI Summary HPI Summary: 81 y/o female BIBA c/o sudden onset L knee pain starting this morning. The pain started when the pt woke up this morning. The pt usually walks with a walker. The pain is located in the L kneecap and in the hip, rated 8/10 in severity at triage. It is aggravated with weight bearing and standing, and alleviated with rest. PMHx bursitis. - History of Current Complaint Chief Complaint: EDExtremityLower Stated Complaint: LT KNEE PAIN Time Seen by Provider: 05/21/17 13:25 Hx Obtained From: Patient Onset/Duration: Still Present - this morning Severity Currently: Severe Pain Intensity: 8 Pain Scale Used: 0-10 Numeric Location: Is Discrete @ - L hip and knee Associated Signs And Symptoms: Positive: Knee Pain Aggravating Factor(s): Standing, Weight Bearing Alleviating Factor(s): Rest Able to Bear Weight: No - Allergies/Home Medications Allergies/Adverse Reactions: Allergies Allergy/AdvReac Type Severity Reaction Status Date / Time Paroxetine [From Paxil] Allergy Unknown Verified 04/02/13 12:47 Reaction Details Simvastatin Allergy Vomiting Verified 11/07/16 12:20 Codeine AdvReac Vomiting Verified 05/02/17 00:35 Oxycodone [From Percocet] AdvReac Vomiting Verified 05/02/17 00:35 Tramadol AdvReac Vomiting Verified 05/02/17 00:35 PMH/Surg Hx/FS Hx/Imm Hx Previously Healthy: No Endocrine/Hematology History: Reports: Hx Diabetes - borderline Cardiovascular History: Reports: Hx Coronary Artery Disease, Hx Hypertension Respiratory History: Reports: Hx Chronic Obstructive Pulmonary Disease (COPD), Hx Sleep Apnea - uses CPAP GI History: Reports: Hx Irritable Bowel Musculoskeletal History: Reports: Hx Arthritis, Hx Bursitis - R hip, Hx Osteoporosis, Other Musculoskeletal History - Restless Leg Syndrome Denies: Hx Back Problems Sensory History: Reports: Hx Contacts or Glasses - reading Denies: Hx Eye Injury, Hx Hearing Aid Opthamlomology History: Reports: Hx Contacts or Glasses - reading Denies: Hx Eye Injury Psychiatric History: Reports: Hx Anxiety - Surgical History Surgery Procedure, Year, and Place: CABG Infectious Disease History: No Infectious Disease History: Denies: Hx of Known/Suspected MRSA, Traveled Outside the [place] in Last 30 Days - Family History Known Family History: Positive: Cardiac Disease, Diabetes - Social History Alcohol Use: None Hx Substance Use: No Substance Use Type: Reports: None Hx Tobacco Use: No Smoking Status (MU): Never Smoked Tobacco Review of Systems Constitutional: Negative Eyes: Negative ENT: Negative Cardiovascular: Negative Respiratory: Negative Gastrointestinal: Negative Genitourinary: Negative Positive: Arthralgia - L knee and hip pain Skin: Negative Neurological: Negative Psychological: Normal All Other Systems Reviewed And Are Negative: Yes Physical Exam - Summary Physical Exam Summary: VITAL SIGNS: Reviewed. GENERAL: ~Patient is a well-developed and nourished female who is lying comfortable in the stretcher. ~Patient is not in any acute respiratory distress. HEAD AND FACE: No signs of trauma. ~No ecchymosis, hematomas or skull depressions. No sinus tenderness. EYES: PERRLA, EOMI x 2, No injected conjunctiva, no nystagmus. EARS: Hearing grossly intact. Ear canals and tympanic membranes are within normal limits. MOUTH: Oropharynx within normal limits. NECK: Supple, trachea is midline, no adenopathy, no JVD, no carotid bruit, no c- spine tenderness, neck with full ROM. CHEST: Symmetric, no tenderness at palpation LUNGS: Clear to auscultation bilaterally. No wheezing or crackles. CVS: Regular rate and rhythm, S1 and S2 present, no murmurs or gallops appreciated. ABDOMEN: Soft, non-tender. No signs of distention. No rebound no guarding, and no masses palpated. Bowel sounds are normal. EXTREMITIES: FROM in all major joints, no edema, no cyanosis or clubbing. FROM in L knee and L hip. There is no erythema and no deformities in the L knee or L hip. NEURO: Alert and oriented x 3. No acute neurological deficits. Speech is normal and follows commands. SKIN: Dry and warm Triage Information Reviewed: Yes Vital Signs On Initial Exam: Initial Vitals Temp Pulse Resp BP Pulse Ox 98.6 F 73 20 144/54 94 05/21/17 12:29 05/21/17 12:29 05/21/17 12:29 05/21/17 12:29 05/21/17 12:29 Vital Signs Reviewed: Yes - [place] Coma Scale Coma Scale Total: 15 Diagnostics - Vital Signs Vital Signs Temp Pulse Resp BP Pulse Ox 05/21/17 12:30 72 10 144/54 93 05/21/17 12:29 98.6 F 73 20 144/54 94 - Laboratory Lab Statement: Any lab studies that have been ordered have been reviewed, and results considered in the medical decision making process. - Radiology KNEE XR Xray Interpretation: No Acute Changes - Negative for joint effusion, fracture, or malalignment. Osteophytosis. Moderately severe medial joint space narrowing and partial flattening of the articular surfaces consistent with Kellgren and Agustin grade 3 osteoarthritis. Severe anterior soft tissue swelling. Cellulitis and prepatellar bursitis not excluded. Radiology Interpretation Completed By: Radiologist - CT LOWER EXTREMITY CT CT Interpretation: No Acute Changes - 1. No CT evidence for hip or pelvic fracture. 2. 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 3. New compared with November 07, 2016 large disc extrusion with resulting moderate acquired spinal stenosis at L4 -L5. Moderately severe bilateral foraminal stenosis due to degenerative spondylosis and posterior element osteoarthritis.. CT Interpretation Completed By: Radiologist Re-Evaluation - Re-Evaluation 1 Re-Evaluation Time: 14:55 Lower Extremity Course/Dx - Course Assessment/Plan: 81 y/o female BIBA c/o sudden onset L knee pain starting this morning. The pain started when the pt woke up this morning. The pt usually walks with a walker. The pain is located in the L kneecap and in the hip, rated 8/10 in severity at triage. It is aggravated with weight bearing and standing, and alleviated with rest. PMHx bursitis. KNEE XR SHOWS Negative for joint effusion, fracture, or malalignment. Osteophytosis. Moderately severe medial joint space narrowing and partial flattening of the articular surfaces consistent with Kellgren and Agustin grade 3 osteoarthritis. Severe anterior soft tissue swelling. Cellulitis and prepatellar bursitis not excluded. LOWER EXTREMITY CT SHOWS 1. No CT evidence for hip or pelvic fracture. 2. 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 3. New compared with November 07, 2016 large disc extrusion with resulting moderate acquired spinal stenosis at L4-L5. Moderately severe bilateral foraminal stenosis due to degenerative spondylosis and posterior element osteoarthritis. In the ED course the pt was given Ultram for pain and anxiety and the pt reports he feels better. The pt has an appt with ortho on Tuesday; therefore the daughter requests prescription for pain until Tuesday. The pt was instructed to do no heavy lifting and no strenuous walking until F/U with ortho. The pt is hemodynamically stable and A&Ox3. - Diagnoses Differential Diagnosis/HQI/PQRI: Positive: Arthritis, Bursitis, Contusion, Infection, Sprain, Strain, Tendonitis Provider Diagnoses: Patellar bursitis of left knee, Hip pain Discharge - Discharge Plan Condition: Stable Disposition: HOME Prescriptions: Ondansetron TAB* [Zofran 4 MG Tab*] 4 mg PO Q6H PRN #10 tab PRN Reason: Vomiting traMADol TAB* [Ultram*] 50 mg PO Q6HR PRN #12 tab MDD 4 PRN Reason: Pain Patient Education Materials: Knee Bursitis (ED), Hip Pain (ED) Referrals: Goran Fernandez MD [Medical Doctor] - 3 Days (PLEASE F/U IN 2-3 DAYS) The documentation as recorded by the Lisa castellon Edward accurately reflects the service I personally performed and the decisions made by Lv gannon Walter, MD.
== END 2017-05-21 15:37 | disposition home or self-care (01) ==
LOC: ED 12:17
DX: M70.42 Prepatellar bursitis, left knee (principal); M25.562 Pain in left knee; M25.559 Pain in unspecified hip; Y93.9 Activity, unspecified
CPT/HCPCS: 99283; A9270-GY

== ENCOUNTER 2018-06-19 10:12 | Day surgery (SDC) | payer MEDICARE ==
[~2018-06-19 10:12] MED LIST: Buffered Lidocaine 0.9% SYRIN* 5 ML/SYR SYRINGE INTRADERM ONE; fentaNYL* 50 MCG/ML 2 ML VIAL (100 MCG VIAL) ONE
[2018-06-19] MEDS ORDERED: Propofol* 10 MG/ML 20 ML BTL IV PUSH ONE (10:18)
[2018-06-19] MEDS ORDERED: Lidocaine 2% PF * 5 ML VIAL ONE (10:53)
[2018-06-19] MEDS ORDERED: Acetaminophen TAB* 325 MG PO PRN (11:02)
[2018-06-19] MEDS ORDERED: Naloxone* 0.4 MG/ML 1 ML VIAL IV PRN (11:02)
[2018-06-19] MEDS ORDERED: fentaNYL* 50 MCG/ML 2 ML VIAL (100 MCG VIAL) IV PRN (11:02)
[2018-06-19] MEDS ORDERED: PROCHLORPERAZINE INJ 5 MG/ML 2 ML VIAL IV PRN (11:02)
[2018-06-19] MEDS ORDERED: Ibuprofen TAB* 600 MG PO PRN (11:02)
[2018-06-19] MEDS ORDERED: oxyCODONE/Acetamin 5/325 MG* TAB PO PRN (11:02)
[2018-06-19] MEDS ORDERED: DiMENhydriNATE IV* 50 MG/ML VIAL IV PUSH PRN (11:02)
[2018-06-19] MEDS ORDERED: Bupivacaine 0.25% SDV* 30 ML ONE (11:08)
[2018-06-19] MEDS ORDERED: Metoclopramide IV* 5 MG/ML 2 ML VIAL ONE (11:37)
[2018-06-19] MEDS ORDERED: Succinylcholine* 20 MG/ML 10 ML VIAL ONE (11:48)
[2018-06-19] MEDS ORDERED: EPHEDrine (Pressors)* 50 MG/ML VIAL ONE (11:49)
[2018-06-19] MEDS ORDERED: Ondansetron INJ* 2 MG/ML VIAL ONE (11:51)
[2018-06-19] MEDS ORDERED: hydrALAZINE IV* 20 MG/ML VIAL IV SLOW PU PRN (12:05)
[2018-06-19] MEDS ORDERED: Desflurane* 240 ML INH ONE (12:16)
[2018-06-19 14:18] VITALS: BP 156/69
--- NOTE | 2018-06-26 10:19 | OP ---
OPERATIVE REPORT: DATE OF OPERATION: 06/19/18 DATE OF : 31 SURGEON: Chris Guerra MD UNLOAD ASSOCIATE: FELICITY Decker ANESTHESIA: General. PRE-OP DIAGNOSES: 1. Right carpal tunnel syndrome. 2. Right volar wrist mass. POST-OP DIAGNOSES: 1. Right carpal tunnel syndrome. 2. Right volar wrist FCR tenosynovitis. OPERATIVE PROCEDURE: 1. Right carpal tunnel release. 2. Excision of right distal FCR tendon tenosynovitis. INDICATIONS: Korin is 83 years old. She has a pretty significant carpal tunnel syndrome as well as she has a mass over the volar right wrist near the FCR tendon. I talked about risks and benefits. Uzma cardoza understands the risks and persistent symptoms given the severity of her carpal tunnel syndrome desp ite doing the release. She would like to proceed. ESTIMATED BLOOD LOSS: 2 mL. COMPLICATIONS: None. FINDINGS: See above and below. DESCRIPTION OF PROCEDURE: Korin was seen in the preoperative holding area. The correct site, side, and procedure were identified. We came back to the operating room. The arm was prepped and draped i n the usual fashion. A time-out was performed. The arm was exsanguinated with the Esmarch and the tourniquet inflated to 250 mmHg. I then made a tonya gitudinal incision in the proximal palm in the typical location for an open carpal tunnel release. T his was brought across the wrist in a Silvestre type fashion. Dissection was carried down through the subcutaneous tissue and palmar fascia and the palm, and more proximally, dissection was carried down to the FCR tendon sheath, where a very large amount of nodular tenosynovitis was identified protrudin g from the FCR tendon sheath. The sheath was opened and I took some time to excise the tenosynovitis . This was sent off as a specimen. After I had excised the tenosynovitis, I went ahead and released the transverse carpal ligament just off the radial aspect of the hook of the hamate. This was carried out from distal to proximal until I reached a level several centimeters proximal to the wrist flexion crease. I checked the decompress ion. There was no compression on the nerve proximally or distally. Everything was looking good, so we irrigated out the wound. Skin was closed with 4-0 nylon suture. Wounds were dressed Xeroform, 4x 4's, sterile Webril, and an Tommie bandage. Tourniquet was deflated. The hand pinked up immediately. She was then taken to the recovery room in stable condition. [id number]/[facility] #: [id number]
== END 2018-06-19 15:21 | disposition home or self-care (01) ==
LOC: OR 10:12
PROVIDERS: ATTEND Orthopaedic Surgery Hand Surgery
DX: G56.01 Carpal tunnel syndrome, right upper limb (principal); M65.831 Other synovitis and tenosynovitis, right forearm; E11.9 Type 2 diabetes mellitus without complications; Z79.84 Long term (current) use of oral hypoglycemic drugs; E03.9 Hypothyroidism, unspecified; I10 Essential (primary) hypertension; M19.90 Unspecified osteoarthritis, unspecified site; I51.9 Heart disease, unspecified
CPT/HCPCS: 88304; J0330; J2405; J2704; J2765; J3010

== ENCOUNTER 2019-03-21 13:11 | Emergency (ER) | payer MEDICARE ==
[2019-03-21 14:21] VITALS: BP 171/72
--- NOTE | 2019-03-21 15:19 | UC ---
Complaint Female HPI - HPI Summary HPI Summary: 83-year-old female presents with reports of an episode of incontinence this morning when she woke up and was walking to the bathroom. States she had a similar episode back in August and was treated for a UTI however she states that she has been continuing to have these episodes of incontinence even after that treatment. Denies fever, chills, abdominal pain, back or flank pain, nausea, vomiting, dysuria, frequency, hematuria, vaginal discharge, or abnormal bleeding. - History Of Current Complaint Chief Complaint: UCGU Stated Complaint: URINARY ISSUE Time Seen by Provider: 03/21/19 14:41 Hx Obtained From: Patient Pain Intensity: 1 - Allergies/Home Medications Allergies/Adverse Reactions: Allergies Allergy/AdvReac Type Severity Reaction Status Date / Time acetaminophen [From Percocet] Allergy Vomiting Verified 03/21/19 14:10 codeine Allergy Vomiting Verified 03/21/19 14:10 oxycodone [From Percocet] Allergy Vomiting Verified 03/21/19 14:10 paroxetine [From Paxil] Allergy Unknown Verified 03/21/19 14:10 Reaction Details simvastatin Allergy Vomiting Verified 03/21/19 14:10 tramadol Allergy Vomiting Verified 03/21/19 14:10 PMH/Surg Hx/FS Hx/Imm Hx Endocrine History: Diabetes, Hypothyroidism, Dyslipidemia Cardiovascular History: Cardiac Disease, Hypertension Respiratory History: Other - MO - Surgical History Surgical History: Yes Surgery Procedure, Year, and Place: CABG. CATARACT REMOVED BILATERAL. TUBAL LIGATION. APPENDECTOMY - Family History Known Family History: Positive: Cardiac Disease, Diabetes - Social History Occupation: Retired Lives: Alone Alcohol Use: None Substance Use Type: None Smoking Status (MU): Never Smoked Tobacco Have You Smoked in the Last Year: No - Immunization History Most Recent Influenza Vaccination: Fall 2015 Most Recent Tetanus Shot: unk Most Recent Pneumonia Vaccination: had previously Review of Systems All Other Systems Reviewed And Are Negative: Yes Constitutional: Negative: Fever, Chills Respiratory: Positive: Negative Cardiovascular: Positive: Negative Gastrointestinal: Negative: Abdominal Pain, Vomiting, Nausea Genitourinary: Positive: Other - Incontinence. Negative: Dysuria, Hematuria, Frequency, Urgency Musculoskeletal: Positive: Negative Neurological: Positive: Negative Is Patient Immunocompromised?: No Physical Exam - Summary Physical Exam Summary: GENERAL APPEARANCE: Well developed, well nourished, alert and cooperative, and appears to be in no acute distress. CARDIAC: Normal S1 and S2. No S3, S4 or murmurs. Rhythm is regular. There is no peripheral edema, cyanosis or pallor. Extremities are warm and well perfused. Capillary refill is less than 2 seconds. Peripheral pulses intact. LUNGS: Clear to auscultation without rales, rhonchi, wheezing or diminished breath sounds. ABDOMEN: Positive bowel sounds. Soft, nondistended, nontender. No guarding or rebound. No masses or hepatosplenomegally. No CVA tenderness. MUSKULOSKELETAL: ROM intact to all extremities. No joint erythema or tenderness. Normal muscular development. Normal gait. SKIN: Skin normal color, texture and turgor with no lesions or eruptions. Triage Information Reviewed: Yes Vital Signs: Initial Vital Signs Temp 97.3 F 03/21/19 14:13 Pulse 58 03/21/19 14:13 Resp 18 03/21/19 14:13 BP 171/72 03/21/19 14:13 Pulse Ox 97 03/21/19 14:13 Vital Signs Reviewed: Yes Complaint Female Dx - Course Course Of Treatment: 83-year-old female presents with reports of an episode of incontinence this morning when she woke up and was walking to the bathroom. States she had a similar episode back in August and was treated for a UTI however she states that she has been continuing to have these episodes of incontinence even after that treatment. Denies fever, chills, abdominal pain, back or flank pain, nausea, vomiting, dysuria, frequency, hematuria, vaginal discharge, or abnormal bleeding. Afebrile. Vital signs stable. Her exam was overall unremarkable. [id number] urinalysis showed trace leukocytes and was otherwise normal. Considering that the incontinence is an ongoing problem and she has no other signs of urinary tract infection I recommended that we send the urine for culture and treat pending those results. I did discuss Kegle exercises with the patient. She is to follow-up with her primary care provider in 3-5 days if symptoms are not improving. Anticipatory guidance and warning symptoms were reviewed with the patient. Verbalizes understanding and agrees with plan of care. - Differential Dx/Diagnosis Differential Diagnosis/HQI/PQRI: Urinary Tract Infection, Other - incontinence Provider Diagnosis: Urinary incontinence in female Discharge - Sign-Out/Discharge Documenting (check all that apply): Patient Departure All imaging exams completed and their final reports reviewed: No Studies - Discharge Plan Condition: Stable Disposition: HOME Patient Education Materials: Kegel Exercises for Women (DC) Referrals: Irvin Schafer MD [Primary Care Provider] - 3 Days Additional Instructions: Your urine test in the clinic today was not suggestive of a urinary tract infection. We will send a urine culture today to see if any bacteria grow out and start you on an antibiotic if this is suggestive of an infection. It will take 48-72 hours to get these results. We will contact you if there is any change in your treatment plan. I have provided you with information on Kegel's exercises which can help strengthen the muscles of the pelvic floor and prevent incontinence. Follow up with your primary care provider in 3-5 days if symptoms persist. Seek immediate medical attention in the emergency room if you develop fever greater than 100.5 F, have severe abdominal pain, persistent vomiting, or any worsening of symptoms. - Billing Disposition and Condition Condition: STABLE Disposition: Home
--- NOTE | 2019-03-22 18:38 | UC ---
- Progress Note Progress Note: Urine culture with no growth. She had no UTI symptoms at her UC visit, but did have an episode of incontinence - this could be age/stress related. Recommend f/u with PCP. STOP antibiotic. Course/Dx - Diagnoses Provider Diagnoses: Urinary incontinence in female Discharge - Sign-Out/Discharge Documenting (check all that apply): Post-Discharge Follow Up All imaging exams completed and their final reports reviewed: No Studies - Discharge Plan Condition: Stable Disposition: HOME Patient Education Materials: Kegel Exercises for Women (DC) Referrals: Irvin Schafer MD [Primary Care Provider] - 3 Days Additional Instructions: Your urine test in the clinic today was not suggestive of a urinary tract infection. We will send a urine culture today to see if any bacteria grow out and start you on an antibiotic if this is suggestive of an infection. It will take 48-72 hours to get these results. We will contact you if there is any change in your treatment plan. I have provided you with information on Kegel's exercises which can help strengthen the muscles of the pelvic floor and prevent incontinence. Follow up with your primary care provider in 3-5 days if symptoms persist. Seek immediate medical attention in the emergency room if you develop fever greater than 100.5 F, have severe abdominal pain, persistent vomiting, or any worsening of symptoms. - Billing Disposition and Condition Condition: STABLE Disposition: Home
== END 2019-03-21 15:34 | disposition home or self-care (01) ==
LOC: UCEAST 13:11
DX: R32 Unspecified urinary incontinence (principal); E11.9 Type 2 diabetes mellitus without complications; E78.5 Hyperlipidemia, unspecified; E03.9 Hypothyroidism, unspecified; I10 Essential (primary) hypertension; Z88.5 Allergy status to narcotic agent
CPT/HCPCS: 81002; 87086; 99211; G0463

== ENCOUNTER 2021-02-02 18:35 | Inpatient (IN) ==
[2021-02-02 20:02] LABS: ABS Basophils 0.1 10^3/ul (0-0.2); ABS Eosinophils 0.1 10^3/ul (0-0.6); ABS Lymphocytes 3.2 10^3/ul (1.0-4.8); ABS Monocytes 0.7 10^3/ul (0-0.8); ABS Neutrophils 5.2 10^3/ul (1.5-7.7); Eosinophil % 0.6 %; Hematocrit 40 % (35-47); Hemoglobin 13.3 g/dL (12.0-16.0); Lymphocyte % 34.9 %; Mean Corpuscular HGB Conc 34 g/dL (31-36); Mean Corpuscular Hemoglobin 33 pg (27-31); Mean Corpuscular Volume 97 fL (80-97); Platelet Count 224 10^3/uL (150-450); Red Blood Count 4.07 10^6 /uL (3.70-4.87); Red Cell Distribution Width 13 % (10-15); White Blood Count 9.2 10^3/uL (3.5-10.8)
[2021-02-02 20:07] LABS: Urine Appearance Clear; Urine Bilirubin Negative (Negative); Urine Blood Negative (Negative); Urine Color Colorless; Urine Glucose 2+(150 mg/dL) (Negative); Urine Ketones Negative (Negative); Urine Nitrite Negative (Negative); Urine Protein Negative (Negative); Urine Specific Gravity 1.004 (1.002-1.030); Urine Urobilinogen Negative (Negative)
[2021-02-02 20:12] LABS: Activated Partial Thrombo Time 29.4 seconds (26.0-38.0); INR 1.01 (0.82-1.09)
[2021-02-02 20:21] LABS: Ammonia 25 mcmol/L (16-53)
[2021-02-02 20:23] LABS: Albumin 4.1 g/dL (3.2-5.2); Albumin/Globulin Ratio 1.2 (1-3); Calcium 8.8 mg/dL (8.6-10.3); EGFR African American 67.3 (>60); EGFR Non-African American 55.6 (>60); Globulin 3.4 g/dL (2-4); Magnesium 1.8 mg/dL (1.9-2.7); Potassium 4.1 mmol/L (3.5-5.0); Total Bilirubin 0.6 mg/dL (0.2-1.0); Total Protein 7.5 g/dL (6.4-8.9)
[2021-02-02 20:24] LABS: Troponin I 0.02 ng/mL (<0.03)
[2021-02-02] MEDS ORDERED: Iodixanol (CONTRAST) 320 MG/ML 100 ML SDV IV ONE (20:26)
[2021-02-02 20:27] LABS: BNP 113 pg/mL (<=100)
[2021-02-02 21:13] LABS: TSH Ultra Thyroid Stim Horm 1.05 mcIU/mL (0.34-5.60)
[2021-02-02 21:15] LABS: Free T4 1.36 ng/dL (0.61-1.12)
[2021-02-02] MEDS ORDERED: PEG PROPYLENE GLYCOL BOTH EYES PRN (23:16)
[2021-02-03] MEDS ORDERED: Dextrose 50% Syringe 50 ml 25 GM/50 ML SYRINGE IV PUSH PRN (00:22)
[2021-02-03] MEDS ORDERED: Magnesium Sulfate 2 gm BAG 2 GM/50 ML BAG IVPB ONE (05:04)
[2021-02-03] MEDS ORDERED: Heparin 5000 UNITS/ML 1 mL VIAL SUBCUT SCH (06:00)
[2021-02-03 06:02] LABS: ABS Eosinophils 0.1 10^3/ul (0-0.6); ABS Lymphocytes 3.1 10^3/ul (1.0-4.8); ABS Monocytes 0.9 10^3/ul (0-0.8); ABS Neutrophils 5.2 10^3/ul (1.5-7.7); Eosinophil % 0.9 %; Hematocrit 41 % (35-47); Lymphocyte % 33.4 %; Mean Corpuscular HGB Conc 35 g/dL (31-36); Mean Corpuscular Hemoglobin 33 pg (27-31); Mean Corpuscular Volume 97 fL (80-97); Mean Platelet Volume 10.1 fL (7.4-10.4); Nucleated Red Blood Cells % 0.1; Platelet Count 223 10^3/uL (150-450); Red Blood Count 4.19 10^6 /uL (3.70-4.87); Red Cell Distribution Width 13 % (10-15); White Blood Count 9.3 10^3/uL (3.5-10.8)
[2021-02-03 06:10] LABS: Calcium 9.2 mg/dL (8.6-10.3); EGFR African American 71.7 (>60); EGFR Non-African American 59.2 (>60); Potassium 3.9 mmol/L (3.5-5.0)
[2021-02-03] MEDS ORDERED: Cosyntropin 0.001 MG in Sodium Chloride 0.9% 0.5 ML IV ONE (07:00)
[2021-02-03 08:07] LABS: HDL Cholesterol 44.9 mg/dL
[2021-02-03] MEDS ORDERED: Ondansetron 4 mg VIAL 2 MG/ML 2 ml VIAL IV PRN (08:47)
[2021-02-03] MEDS: Aspirin EC 81 mg TAB.EC (enteric coated) PO SCH (09:44)
[2021-02-03] MEDS: Enoxaparin 40 MG/0.4 ML SYR SUBCUT SCH (09:45)
[2021-02-03] MEDS: CMCS: Olopatadine 0.1% OPHTH (NF) 1 DROP BTL BOTH EYES SCH (09:56)
[2021-02-03 12:20] LABS: Calcium 9.4 mg/dL (8.6-10.3); EGFR Non-African American 51.3 (>60); Potassium 4.1 mmol/L (3.5-5.0)
[2021-02-03 15:20] LABS: C Reactive Protein 2.12 mg/L (<8.01)
[2021-02-03 19:12] LABS: Erythrocyte Sed Rate 30 mm/Hr (0-29)
[2021-02-04 08:09] LABS: ABS Eosinophils 0.1 10^3/ul (0-0.6); ABS Lymphocytes 3.3 10^3/ul (1.0-4.8); ABS Monocytes 0.7 10^3/ul (0-0.8); Eosinophil % 1.5 %; Hematocrit 41 % (35-47); Hemoglobin 13.7 g/dL (12.0-16.0); Lymphocyte % 40.4 %; Mean Corpuscular HGB Conc 34 g/dL (31-36); Mean Corpuscular Hemoglobin 33 pg (27-31); Mean Corpuscular Volume 98 fL (80-97); Mean Platelet Volume 10.1 fL (7.4-10.4); Nucleated Red Blood Cells % 0.1; Platelet Count 223 10^3/uL (150-450); Red Blood Count 4.15 10^6 /uL (3.70-4.87); Red Cell Distribution Width 13 % (10-15); White Blood Count 8.2 10^3/uL (3.5-10.8)
[2021-02-04 08:21] LABS: EGFR African American 55.1 (>60); EGFR Non-African American 45.5 (>60); Potassium 3.8 mmol/L (3.5-5.0)
[2021-02-04] MEDS: CMCS: Olopatadine 0.1% OPHTH (NF) 1 DROP BTL BOTH EYES SCH ×2 (09:00→10:34)
[2021-02-04] MEDS: Aspirin EC 81 mg TAB.EC (enteric coated) PO SCH (11:04)
[2021-02-04] MEDS: Enoxaparin 40 MG/0.4 ML SYR SUBCUT SCH (11:05)
[2021-02-04] MEDS ORDERED: Magnesium Hydroxide LIQ 30 ML UDC PO PRN (15:01)
[2021-02-04] MEDS ORDERED: Polyethylene Glycol 3350 17 GM PACKET PO PRN (15:01)
[2021-02-04] MEDS ORDERED: Senna TAB 8.6 mg TAB PO PRN (15:01)
[2021-02-04 17:51] VITALS: BP 127/54
[2021-02-05 15:38] LABS: Albumin 3.3 g/dL (3.4-4.7); Albumin/Globulin Ratio 0.86; Gamma Globulin 1.2 g/dL (0.6-1.6); Total Protein(PEP) 7.1 g/dL (6.3 - 7.9)
== END 2021-02-04 18:35 | disposition home or self-care (01) | DRG 643 ==
LOC: ED 18:35 → MEDTELE 23:13
PROVIDERS: ADMIT Internal Medicine; ATTEND Hospitalist

== ENCOUNTER 2021-08-30 12:59 | Inpatient (IN) ==
[2021-08-30 13:31] LABS: PCO2 Arterial 41 mmHg (35-45)
[2021-08-30 13:33] LABS: PO2 Arterial 57 mmHg (80-100)
[2021-08-30 13:54] LABS: ABS Eosinophils 0.1 10^3/ul (0-0.6); ABS Monocytes 0.7 10^3/ul (0-0.8); ABS Neutrophils 6.7 10^3/ul (1.5-7.7); Eosinophil % 0.7 %; Hematocrit 38 % (35-47); Hemoglobin 12.6 g/dL (12.0-16.0); Lymphocyte % 21.2 %; Mean Corpuscular HGB Conc 33 g/dL (31-36); Mean Corpuscular Hemoglobin 32 pg (27-31); Mean Corpuscular Volume 97 fL (80-97); Mean Platelet Volume 10.9 fL (7.4-10.4); Platelet Count 193 10^3/uL (150-450); Red Blood Count 3.91 10^6 /uL (3.70-4.87); Red Cell Distribution Width 14 % (10-15); White Blood Count 9.5 10^3/uL (3.5-10.8)
[2021-08-30 14:10] LABS: ALT 8 U/L (7-52); AST 13 U/L (13-39); Albumin 4.2 g/dL (3.2-5.2); Albumin/Globulin Ratio 1.3 (1-3); Alkaline Phosphatase 63 U/L (35-149); Anion Gap 10 mmol/L (2-11); Blood Urea Nitrogen 14 mg/dL (6-24); C Reactive Protein 8.55 mg/L (<8.01); CO2 Carbon Dioxide 28 mmol/L (22-32); Calcium 9.1 mg/dL (8.6-10.3); Chloride 101 mmol/L (101-111); Creatine Kinase 77 U/L (10-223); Globulin 3.3 g/dL (2-4); Glucose 149 mg/dL (70-100); Potassium 3.6 mmol/L (3.5-5.0); Sodium 139 mmol/L (135-145); Total Protein 7.5 g/dL (6.4-8.9); eGFR CKD-EPI 67.8 (>60)
[2021-08-30] MEDS ORDERED: Iodixanol (CONTRAST) 320 MG/ML 100 ML SDV IV ONE (14:17)
[2021-08-30 14:19] LABS: Troponin I 0.13 ng/mL (<0.03)
[2021-08-30 14:31] LABS: Activated Partial Thrombo Time 34.8 seconds (26.0-38.0); INR 1.03 (0.86-1.15)
[2021-08-30] MEDS ORDERED: Furosemide 40 mg/4 ml IV VIAL IV ONE (14:49)
[2021-08-30] MEDS ORDERED: cefTRIAXone 1 gm/50 mL NS BAG 1 GM/50 ML BAG IV ONE (15:32)
[2021-08-30] MEDS ORDERED: Azithromycin 500 mg/250 ml NS 500 MG/250 ML BAG IVPB ONE (15:32)
[2021-08-30] MEDS ORDERED: Dextrose 50% Syringe 50 ml 25 GM/50 ML SYRINGE IV PUSH PRN (16:40)
[2021-08-30] MEDS ORDERED: Ondansetron 4 mg VIAL 2 MG/ML 2 ml VIAL IV PRN (16:42)
[2021-08-30] MEDS ORDERED: Al Hydrox/Mg Hydrox/Simet LIQ 30 ML UDC PO PRN (16:42)
[2021-08-30 18:16] LABS: Troponin I 0.14 ng/mL (<0.03)
[2021-08-30] MEDS: Enoxaparin 40 MG/0.4 ML SYR SUBCUT SCH (18:23)
[2021-08-30 23:07] LABS: Troponin I 0.16 ng/mL (<0.03)
[2021-08-31] MEDS ORDERED: Furosemide 40 mg/4 ml IV VIAL IV SLOW PU ONE (00:57)
[2021-08-31 01:45] LABS: Magnesium 1.8 mg/dL (1.9-2.7); Potassium 3.6 mmol/L (3.5-5.0); eGFR CKD-EPI 52.9 (>60)
[2021-08-31 06:21] LABS: ABS Eosinophils 0.1 10^3/ul (0-0.6); ABS Lymphocytes 1.5 10^3/ul (1.0-4.8); ABS Monocytes 0.6 10^3/ul (0-0.8); ABS Neutrophils 5.5 10^3/ul (1.5-7.7); Eosinophil % 1.8 %; Hematocrit 36 % (35-47); Hemoglobin 11.8 g/dL (12.0-16.0); Lymphocyte % 19.2 %; Mean Corpuscular HGB Conc 33 g/dL (31-36); Mean Corpuscular Hemoglobin 32 pg (27-31); Mean Corpuscular Volume 97 fL (80-97); Mean Platelet Volume 10.4 fL (7.4-10.4); Platelet Count 182 10^3/uL (150-450); Red Blood Count 3.66 10^6 /uL (3.70-4.87); Red Cell Distribution Width 14 % (10-15); White Blood Count 7.8 10^3/uL (3.5-10.8)
[2021-08-31 06:49] LABS: Anion Gap 9 mmol/L (2-11); Blood Urea Nitrogen 15 mg/dL (6-24); CO2 Carbon Dioxide 32 mmol/L (22-32); Calcium 8.7 mg/dL (8.6-10.3); Chloride 100 mmol/L (101-111); Glucose 150 mg/dL (70-100); Potassium 3.3 mmol/L (3.5-5.0); Sodium 141 mmol/L (135-145); eGFR CKD-EPI 55.5 (>60)
[2021-08-31 06:56] LABS: Troponin I 0.31 ng/mL (<0.03)
[2021-08-31] MEDS: CMCS: Pravastatin 20 mg TAB (NF) PO SCH (08:44)
[2021-08-31] MEDS: Aspirin EC 81 mg TAB.EC (enteric coated) PO SCH (08:44)
[2021-08-31] MEDS: Furosemide 40 mg/4 ml IV VIAL IV SLOW PU SCH ×2 (08:46→17:12)
[2021-08-31] MEDS: KCL 20 MEQ/100 ML IVPREMIX 20 MEQ/100 ML BAG IV SCH ×3 (09:42→14:51)
[2021-08-31] MEDS: Benzocaine/Menthol LOZ PO PRN (12:23)
[2021-08-31 12:29] LABS: Troponin I 0.26 ng/mL (<0.03)
[2021-08-31 13:16] LABS: Urine Appearance Clear; Urine Bilirubin Negative (Negative); Urine Blood Negative (Negative); Urine Color Yellow; Urine Glucose Negative (Negative); Urine Ketones Negative (Negative); Urine Nitrite Negative (Negative); Urine Protein Negative (Negative); Urine Specific Gravity 1.011 (1.002-1.030); Urine Urobilinogen Negative (Negative)
[2021-08-31] MEDS: Enoxaparin 40 MG/0.4 ML SYR SUBCUT SCH (17:12)
[2021-08-31 17:33] LABS: Magnesium 1.8 mg/dL (1.9-2.7)
[2021-08-31] MEDS: Magnesium Hydroxide LIQ 30 ML UDC PO PRN (20:45)
[2021-08-31 22:10] LABS: TSH Ultra Thyroid Stim Horm 2.91 mcIU/mL (0.34-5.60)
[2021-09-01 06:58] LABS: ABS Eosinophils 0.2 10^3/ul (0-0.6); ABS Lymphocytes 2.4 10^3/ul (1.0-4.8); ABS Monocytes 0.7 10^3/ul (0-0.8); ABS Neutrophils 3.4 10^3/ul (1.5-7.7); Eosinophil % 2.5 %; Hematocrit 36 % (35-47); Hemoglobin 12.2 g/dL (12.0-16.0); Lymphocyte % 35.5 %; Mean Corpuscular HGB Conc 34 g/dL (31-36); Mean Corpuscular Hemoglobin 33 pg (27-31); Mean Corpuscular Volume 97 fL (80-97); Mean Platelet Volume 10.5 fL (7.4-10.4); Platelet Count 194 10^3/uL (150-450); Red Blood Count 3.74 10^6 /uL (3.70-4.87); Red Cell Distribution Width 14 % (10-15); White Blood Count 6.6 10^3/uL (3.5-10.8)
[2021-09-01 07:25] LABS: Calcium 8.7 mg/dL (8.6-10.3); Potassium 3.8 mmol/L (3.5-5.0); eGFR CKD-EPI 48.3 (>60)
[2021-09-01] MEDS: CMCS: Pravastatin 20 mg TAB (NF) PO SCH (08:39)
[2021-09-01] MEDS: Furosemide 40 mg/4 ml IV VIAL IV SLOW PU SCH ×2 (08:39→17:51)
[2021-09-01] MEDS: Aspirin EC 81 mg TAB.EC (enteric coated) PO SCH (08:39)
[2021-09-01] MEDS: Enoxaparin 40 MG/0.4 ML SYR SUBCUT SCH (17:51)
[2021-09-01] MEDS: Magnesium Hydroxide LIQ 30 ML UDC PO PRN (19:48)
[2021-09-02] MEDS: Furosemide 40 mg/4 ml IV VIAL IV SLOW PU SCH ×2 (08:12→16:23)
[2021-09-02] MEDS: Aspirin EC 81 mg TAB.EC (enteric coated) PO SCH (08:12)
[2021-09-02] MEDS: CMCS: Pravastatin 20 mg TAB (NF) PO SCH (08:12)
[2021-09-02 08:15] LABS: ABS Eosinophils 0.2 10^3/ul (0-0.6); ABS Monocytes 0.6 10^3/ul (0-0.8); ABS Neutrophils 3.7 10^3/ul (1.5-7.7); Eosinophil % 2.4 %; Hematocrit 36 % (35-47); Hemoglobin 12.2 g/dL (12.0-16.0); Lymphocyte % 31.1 %; Mean Corpuscular HGB Conc 34 g/dL (31-36); Mean Corpuscular Hemoglobin 33 pg (27-31); Mean Corpuscular Volume 97 fL (80-97); Platelet Count 192 10^3/uL (150-450); Red Blood Count 3.72 10^6 /uL (3.70-4.87); Red Cell Distribution Width 14 % (10-15); White Blood Count 6.5 10^3/uL (3.5-10.8)
[2021-09-02 08:32] LABS: Calcium 8.8 mg/dL (8.6-10.3); Magnesium 2.2 mg/dL (1.9-2.7); Potassium 3.7 mmol/L (3.5-5.0); eGFR CKD-EPI 48.9 (>60)
[2021-09-02] MEDS: Enoxaparin 40 MG/0.4 ML SYR SUBCUT SCH (16:22)
[2021-09-02] MEDS: Benzocaine/Menthol LOZ PO PRN (18:05)
[2021-09-02] MEDS ORDERED: Dextran 70/Hypromellose Tears Eye Drops 15 ml BTL (for Artificials Tears) BOTH EYES PRN (18:07)
[2021-09-02] MEDS: Magnesium Hydroxide LIQ 30 ML UDC PO PRN (20:57)
[2021-09-03 05:48] LABS: ABS Eosinophils 0.1 10^3/ul (0-0.6); ABS Lymphocytes 2.6 10^3/ul (1.0-4.8); ABS Monocytes 0.7 10^3/ul (0-0.8); ABS Neutrophils 3.3 10^3/ul (1.5-7.7); Eosinophil % 2.1 %; Hematocrit 37 % (35-47); Hemoglobin 12.4 g/dL (12.0-16.0); Lymphocyte % 38.4 %; Mean Corpuscular HGB Conc 33 g/dL (31-36); Mean Corpuscular Hemoglobin 32 pg (27-31); Mean Corpuscular Volume 97 fL (80-97); Platelet Count 217 10^3/uL (150-450); Red Blood Count 3.83 10^6 /uL (3.70-4.87); Red Cell Distribution Width 14 % (10-15); White Blood Count 6.7 10^3/uL (3.5-10.8)
[2021-09-03 06:02] LABS: Calcium 8.8 mg/dL (8.6-10.3); Potassium 3.5 mmol/L (3.5-5.0); eGFR CKD-EPI 45.3 (>60)
[2021-09-03] MEDS: CMCS: Pravastatin 20 mg TAB (NF) PO SCH (10:06)
[2021-09-03] MEDS: Aspirin EC 81 mg TAB.EC (enteric coated) PO SCH (10:07)
[2021-09-03] MEDS: Furosemide 40 mg/4 ml IV VIAL IV SLOW PU SCH ×2 (10:08→17:58)
[2021-09-03] MEDS ORDERED: Potassium Chlor 10 meq TAB PO ONE (10:58)
[2021-09-03] MEDS ORDERED: Furosemide 40 mg/4 ml IV VIAL IV SLOW PU ONE (13:23)
[2021-09-03] MEDS: Enoxaparin 40 MG/0.4 ML SYR SUBCUT SCH (17:58)
[2021-09-04 06:14] LABS: ABS Eosinophils 0.1 10^3/ul (0-0.6); ABS Lymphocytes 2.4 10^3/ul (1.0-4.8); ABS Monocytes 0.7 10^3/ul (0-0.8); ABS Neutrophils 4.2 10^3/ul (1.5-7.7); Eosinophil % 1.8 %; Hematocrit 36 % (35-47); Lymphocyte % 31.3 %; Mean Corpuscular HGB Conc 34 g/dL (31-36); Mean Corpuscular Hemoglobin 33 pg (27-31); Mean Corpuscular Volume 97 fL (80-97); Mean Platelet Volume 10.9 fL (7.4-10.4); Nucleated Red Blood Cells % 0.1; Platelet Count 211 10^3/uL (150-450); Red Blood Count 3.68 10^6 /uL (3.70-4.87); Red Cell Distribution Width 14 % (10-15); White Blood Count 7.5 10^3/uL (3.5-10.8)
[2021-09-04 06:22] LABS: Albumin 3.9 g/dL (3.2-5.2); Albumin/Globulin Ratio 1.3 (1-3); Calcium 8.6 mg/dL (8.6-10.3); Globulin 3.1 g/dL (2-4); Magnesium 2.4 mg/dL (1.9-2.7); Phosphorus 4.9 mg/dL (2.5-5.0); Potassium 3.4 mmol/L (3.5-5.0); Total Bilirubin 0.4 mg/dL (0.2-1.0); eGFR CKD-EPI 46.8 (>60)
[2021-09-04] MEDS: Furosemide 40 mg/4 ml IV VIAL IV SLOW PU SCH (08:42)
[2021-09-04] MEDS: Magnesium Hydroxide LIQ 30 ML UDC PO PRN (08:42)
[2021-09-04] MEDS: CMCS: Pravastatin 20 mg TAB (NF) PO SCH (08:42)
[2021-09-04] MEDS: Aspirin EC 81 mg TAB.EC (enteric coated) PO SCH (08:42)
[2021-09-04] MEDS: Potassium Chlor 20 meq TAB.ER PO SCH ×3 (09:35→12:12)
[2021-09-04 13:55] VITALS: BP 126/52
[2021-09-04] MEDS ORDERED: Furosemide 40 mg/4 ml IV VIAL IV SLOW PU SCH (14:00)
== END 2021-09-04 16:25 | disposition home or self-care (01) | DRG 291 ==
LOC: ED 12:59 → SUATTDRO 16:42 → EDHOLD 16:42 → MEDTELE 20:41
PROVIDERS: ADMIT Hospitalist; ATTEND Internal Medicine

== ENCOUNTER 2022-07-14 11:28 | Inpatient (IN) ==
[2022-07-14 12:51] LABS: ABS Eosinophils 0.1 10^3/ul (0-0.6); ABS Lymphocytes 1.7 10^3/ul (1.0-4.8); ABS Monocytes 0.6 10^3/ul (0-0.8); ABS Neutrophils 6.5 10^3/ul (1.5-7.7); Eosinophil % 0.7 %; Hematocrit 35 % (35-47); Hemoglobin 11.2 g/dL (12.0-16.0); Lymphocyte % 19.5 %; Mean Corpuscular HGB Conc 32 g/dL (31-36); Mean Corpuscular Hemoglobin 31 pg (27-31); Mean Corpuscular Volume 98 fL (80-97); Mean Platelet Volume 9.5 fL (7.4-10.4); Nucleated Red Blood Cells % 0.1; Platelet Count 243 10^3/uL (150-450); Red Blood Count 3.59 10^6 /uL (3.70-4.87); Red Cell Distribution Width 16 % (10-15)
[2022-07-14 13:07] LABS: ALT 11 U/L (7-52); Albumin 4.4 g/dL (3.2-5.2); Albumin/Globulin Ratio 1.4 (1-3); Alkaline Phosphatase 60 U/L (35-149); Blood Urea Nitrogen 23 mg/dL (6-24); CO2 Carbon Dioxide 27 mmol/L (22-32); Calcium 9.2 mg/dL (8.6-10.3); Chloride 98 mmol/L (101-111); Globulin 3.2 g/dL (2-4); Glucose 142 mg/dL (70-100); Lipase 13 U/L (11.0-82.0); Sodium 133 mmol/L (135-145); Total Protein 7.6 g/dL (6.4-8.9); eGFR CKD-EPI 53.9 (>60)
[2022-07-14 13:12] LABS: High Sens Troponin Baseline 20 pg/mL (<15)
[2022-07-14 13:40] LABS: Urine Appearance Clear; Urine Bilirubin Negative (Negative); Urine Blood 1+ (Negative); Urine Color Yellow; Urine Glucose Negative (Negative); Urine Ketones Negative (Negative); Urine Nitrite Negative (Negative); Urine Protein Negative (Negative); Urine Specific Gravity 1.008 (1.002-1.030); Urine Urobilinogen Negative (Negative)
[2022-07-14] MEDS ORDERED: Furosemide 20 mg/2 ml IV VIAL IV SLOW PU ONE (13:42)
[2022-07-14 13:44] LABS: Urine Bacteria Absent (Absent); Urine Red Blood Cell Trace(0-2/hpf) (Absent); Urine Squamous Epithelial Cell Present (Absent); Urine White Blood Cell Trace(0-5/hpf) (Absent)
[2022-07-14 13:44] LABS: Anion Gap 8 mmol/L (2-11)
[2022-07-14] MEDS ORDERED: Iodixanol (CONTRAST) 320 MG/ML 100 ML SDV IV ONE (13:57)
[2022-07-14 14:02] LABS: High Sensitivity Troponin 1 Hr 20 pg/mL (<15)
[2022-07-14 17:56] LABS: TSH Ultra Thyroid Stim Horm 5.02 mcIU/mL (0.34-5.60)
[2022-07-14] MEDS: Enoxaparin 40 MG/0.4 ML SYR SUBCUT SCH (17:56)
[2022-07-14 18:34] LABS: Magnesium 2.6 mg/dL (1.9-2.7)
[2022-07-14] MEDS ORDERED: Furosemide 40 mg/4 ml IV VIAL IV ONE (19:43)
[2022-07-14] MEDS ORDERED: Dextrose 50% Syringe 50 ml 25 GM/50 ML SYRINGE IV PUSH PRN (19:44)
[2022-07-15 06:09] LABS: ABS Basophils 0.1 10^3/ul (0-0.2); ABS Eosinophils 0.1 10^3/ul (0-0.6); ABS Lymphocytes 2.2 10^3/ul (1.0-4.8); ABS Monocytes 0.7 10^3/ul (0-0.8); ABS Neutrophils 5.9 10^3/ul (1.5-7.7); Eosinophil % 0.8 %; Hematocrit 34 % (35-47); Hemoglobin 11.1 g/dL (12.0-16.0); Lymphocyte % 24.6 %; Mean Corpuscular HGB Conc 33 g/dL (31-36); Mean Corpuscular Hemoglobin 32 pg (27-31); Mean Corpuscular Volume 98 fL (80-97); Mean Platelet Volume 9.1 fL (7.4-10.4); Platelet Count 264 10^3/uL (150-450); Red Blood Count 3.48 10^6 /uL (3.70-4.87); Red Cell Distribution Width 16 % (10-15); White Blood Count 8.9 10^3/uL (3.5-10.8)
[2022-07-15 06:49] LABS: Anion Gap 13 mmol/L (2-11); Blood Urea Nitrogen 22 mg/dL (6-24); CO2 Carbon Dioxide 28 mmol/L (22-32); Calcium 9.1 mg/dL (8.6-10.3); Chloride 97 mmol/L (101-111); Glucose 144 mg/dL (70-100); Magnesium 2.6 mg/dL (1.9-2.7); Potassium 4.3 mmol/L (3.5-5.0); Sodium 138 mmol/L (135-145); eGFR CKD-EPI 45.5 (>60)
[2022-07-15] MEDS: Cholecalciferol (VIT D3) 1,000 unit TAB PO SCH (08:54)
[2022-07-15] MEDS: Aspirin EC 81 mg TAB.EC (enteric coated) PO SCH (08:54)
[2022-07-15 17:31] LABS: % Iron Saturation 11 % (15-55); Iron 50 ug/dL (50-212); Total Iron Binding Capacity 465 mcg/dL (250-450); Transferrin 332 mg/dL (203-362); Unsaturated Iron Binding 415 ug/dL
[2022-07-15] MEDS: Enoxaparin 40 MG/0.4 ML SYR SUBCUT SCH (17:46)
[2022-07-15 17:53] LABS: Ferritin 72.9 ng/mL (11-307)
[2022-07-15 17:56] LABS: Folate > 20.00 ng/mL (5.90-24.80)
[2022-07-15 17:57] LABS: Vitamin B12 182 pg/mL (180-914)
[2022-07-16 05:52] LABS: ABS Basophils 0.1 10^3/ul (0-0.2); ABS Eosinophils 0.1 10^3/ul (0-0.6); ABS Lymphocytes 1.9 10^3/ul (1.0-4.8); ABS Monocytes 0.6 10^3/ul (0-0.8); ABS Neutrophils 4.4 10^3/ul (1.5-7.7); Eosinophil % 1.9 %; Hematocrit 33 % (35-47); Hemoglobin 10.7 g/dL (12.0-16.0); Lymphocyte % 26.8 %; Mean Corpuscular HGB Conc 33 g/dL (31-36); Mean Corpuscular Hemoglobin 32 pg (27-31); Mean Corpuscular Volume 98 fL (80-97); Mean Platelet Volume 9.2 fL (7.4-10.4); Platelet Count 221 10^3/uL (150-450); Red Blood Count 3.36 10^6 /uL (3.70-4.87); Red Cell Distribution Width 15 % (10-15); White Blood Count 7.1 10^3/uL (3.5-10.8)
[2022-07-16 06:23] LABS: Calcium 8.6 mg/dL (8.6-10.3); Magnesium 2.5 mg/dL (1.9-2.7); Potassium 3.6 mmol/L (3.5-5.0); eGFR CKD-EPI 43.3 (>60)
[2022-07-16 09:29] LABS: HDL Cholesterol 37.1 mg/dL
[2022-07-16] MEDS: Aspirin EC 81 mg TAB.EC (enteric coated) PO SCH (09:35)
[2022-07-16] MEDS: Cholecalciferol (VIT D3) 1,000 unit TAB PO SCH (09:35)
[2022-07-16] MEDS ORDERED: Potassium Chloride LIQUID 20 MEQ/15 ML LIQUID PO ONE (10:13)
[2022-07-16] MEDS ORDERED: Regadenoson 0.4 MG/5 ML SYRINGE ONE (10:31)
[2022-07-16] MEDS ORDERED: Aminophylline 25 MG/ML VIAL ONE (10:31)
[2022-07-16] MEDS ORDERED: Cyanocobalamin INJ 1,000 MCG/ML VIAL 1 ML VIAL IM ONE (11:19)
[2022-07-16] MEDS: Iron Sucrose 200 MG in NS 0.9% 100 ml BAG 100 ML IVPB SCH (12:32)
[2022-07-16] MEDS: Enoxaparin 40 MG/0.4 ML SYR SUBCUT SCH (16:54)
[2022-07-17 05:47] LABS: ABS Eosinophils 0.1 10^3/ul (0-0.6); ABS Lymphocytes 1.8 10^3/ul (1.0-4.8); ABS Monocytes 0.7 10^3/ul (0-0.8); ABS Neutrophils 4.3 10^3/ul (1.5-7.7); Hematocrit 36 % (35-47); Hemoglobin 11.8 g/dL (12.0-16.0); Lymphocyte % 25.9 %; Mean Corpuscular HGB Conc 33 g/dL (31-36); Mean Corpuscular Hemoglobin 32 pg (27-31); Mean Corpuscular Volume 98 fL (80-97); Mean Platelet Volume 9.2 fL (7.4-10.4); Platelet Count 256 10^3/uL (150-450); Red Blood Count 3.65 10^6 /uL (3.70-4.87); Red Cell Distribution Width 16 % (10-15)
[2022-07-17 06:48] LABS: Calcium 8.7 mg/dL (8.6-10.3); Magnesium 2.4 mg/dL (1.9-2.7); eGFR CKD-EPI 49.7 (>60)
[2022-07-17] MEDS: Aspirin EC 81 mg TAB.EC (enteric coated) PO SCH (08:55)
[2022-07-17] MEDS: Cholecalciferol (VIT D3) 1,000 unit TAB PO SCH (08:55)
[2022-07-17] MEDS: Iron Sucrose 200 MG in NS 0.9% 100 ml BAG 100 ML IVPB SCH (08:56)
[2022-07-17 15:59] VITALS: BP 123/62
[2022-07-17] MEDS: Enoxaparin 40 MG/0.4 ML SYR SUBCUT SCH (16:53)
== END 2022-07-17 17:35 | disposition home or self-care (01) | DRG 291 ==
LOC: ED 11:28 → EDHOLD 11:28 → SUATTDRO 14:44 → MEDTELE 22:15
PROVIDERS: ADMIT Internal Medicine; ATTEND Internal Medicine